=== PATIENT | male | born 1960 | race Hispanic/Latino ===

== ENCOUNTER → 2023-03-18 | Outpatient (CLI) | payer MEDICAID ==
[2023-03-25 12:20] LABS: CREATININE 1.1 mg/dL (0.5-1.5); POTASSIUM 4.7 mmol/L (3.5-5.1)
== END | disposition home or self-care (01) ==
LOC: LAB 10:33
PROVIDERS: ATTEND Physician Assistant
DX: R06.00 Dyspnea, unspecified (principal); I25.810 Atherosclerosis of coronary artery bypass graft(s) without angina pectoris
CPT/HCPCS: 36415; 80048; 83880

== ENCOUNTER 2023-03-29 19:22 | Inpatient (IN) | payer MEDICAID ==
[~2023-03-29] VITALS: Ht 162.6 cm; Wt 99.7 kg
[2023-03-29 20:15] LABS: BASOPHILS # (AUTO) 0.04 K/uL (0.00-0.20); BASOPHILS % (AUTO) 0.5 % (0.0-5.0); EOSINOPHILS # (AUTO) 0.11 K/uL (0.00-0.70); EOSINOPHILS % (AUTO) 1.4 % (0.0-8.0); HEMATOCRIT 46.8 % (42-54); IMMATURE GRANULOCYTE ABSOLUTE 0.03 K/uL (0-1); LYMPHOCYTES # (AUTO) 1.8 K/uL (1.0-4.8); LYMPHOCYTES % (AUTO) 22.5 % (21.0-51.0); MEAN CORPUSCULAR HEMOGLOBIN 30.5 pg (27.0-33.0); MEAN CORPUSCULAR HGB CONC 33.3 g/dL (32.0-36.0); MEAN CORPUSCULAR VOLUME 91.4 fL (79-99); MONOCYTES # (AUTO) 0.7 K/uL (0.1-1.0); MONOCYTES % (AUTO) 8.6 % (3.0-13.0); NEUTROPHILS # (AUTO) 5.3 K/uL (1.8-7.7); NEUTROPHILS % (AUTO) 66.6 % (40.0-77.0); PLATELET COUNT (AUTO) 206 K/uL (130-400); RED BLOOD CELL COUNT(AUTO) 5.12 MIL/uL (4.50-6.20); RED CELL DISTRIBUTION WIDTH 15.1 % (11.0-15.5); WHITE BLOOD COUNT (AUTO) 7.9 K/uL (4.8-10.8)
[2023-03-29 20:25] LABS: INR 1.29 (0.85-1.15); PROTHROMBIN TIME 14.7 SEC (9.6-11.6)
[2023-03-29 20:27] LABS: PARTIAL THROMBOPLASTIN TIME 28.5 SEC (26.3-35.5)
[2023-03-29 20:33] LABS: CREATININE 1.1 mg/dL (0.5-1.5); POTASSIUM 3.8 mmol/L (3.5-5.1)
[2023-03-29 20:43] LABS: ALBUMIN 3.5 g/dL (3.5-5.0); BILIRUBIN,TOTAL 1.8 mg/dL (0.2-1.0); TOTAL PROTEIN, SERUM 6.7 g/dL (6.0-8.3)
[2023-03-29] MEDS ORDERED: GLUCAGON 1MG KIT 1 MG ML IM PRN (22:30)
[2023-03-29] MEDS ORDERED: ONDANSETRON 4MG INJ IVP PRN (22:30)
[2023-03-29] MEDS ORDERED: DEXTROSE 50%-WATER 50 ML DISP.SYRIN IV PRN (22:30)
[2023-03-29] MEDS ORDERED: ACETAMINOPHEN 325 MG TAB PO PRN ×2 (22:30)
[2023-03-29 23:30] VITALS: O2SAT 98
[2023-03-29 23:32] VITALS: BP 133/80; PULSE 100; RESP 18
[2023-03-30] VITALS (13 sets, daily range): BP systolic 119–162; BP diastolic 66–110; PULSE 40–119; RESP 18–22; O2SAT 96–97
[2023-03-30 02:40] LABS: HEMATOCRIT 47.1 % (42-54); MEAN CORPUSCULAR HEMOGLOBIN 30.9 pg (27.0-33.0); MEAN CORPUSCULAR HGB CONC 32.9 g/dL (32.0-36.0); MEAN CORPUSCULAR VOLUME 93.8 fL (79-99); RED BLOOD CELL COUNT(AUTO) 5.02 MIL/uL (4.50-6.20); RED CELL DISTRIBUTION WIDTH 15.4 % (11.0-15.5)
[2023-03-30 03:06] LABS: HEMOGLOBIN A1C 8.3 % (4.0-6.0)
[2023-03-30 03:09] LABS: CREATININE 1.1 mg/dL (0.5-1.5); MAGNESIUM 1.8 mg/dL (1.80-2.40); POTASSIUM 4.4 mmol/L (3.5-5.1)
[2023-03-30] MEDS ORDERED: APIX5TAB PO (04:59)
[2023-03-30] MEDS ORDERED: HYDR-3421 PO (04:59)
[2023-03-30] MEDS ORDERED: METO-391 PO (04:59)
[2023-03-30] MEDS ORDERED: ATOR40TA71 PO (04:59)
[2023-03-30] MEDS ORDERED: FURO40TA5 PO (04:59)
[2023-03-30] MEDS ORDERED: NITR0.4T50 SL (04:59)
[2023-03-30] MEDS ORDERED: DIPHENHYDRAMINE HCL 25 MG CAPSULE PO ONE (05:45)
[2023-03-30] MEDS: INSULIN HUMULIN R 100 UNIT/ML 3ML SQ SCH ×4 (06:04→20:31)
[2023-03-30] MEDS ORDERED: 0.9% NACL 500ML IV.SOLN 500 ML IV SCH (09:00)
[2023-03-30] MEDS ORDERED: MIDAZOLAM HCL 1 MG/ML 2ML VIAL ONE ×2 (13:27→13:58)
[2023-03-30] MEDS ORDERED: BIVALIRUDIN 250 MG/VIAL IV ONE (13:27)
[2023-03-30] MEDS ORDERED: NITROGLYCERIN 50MG VIAL ONE (13:27)
[2023-03-30] MEDS ORDERED: LIDOCAINE HCL 400MG/20ML VIAL ONE (13:27)
[2023-03-30] MEDS ORDERED: FENTANYL CITRATE PF 50 MCG/1 ML 2ML VIAL ONE (13:27)
[2023-03-30] MEDS ORDERED: IOHEXOL 350 MG/ML 100ML INFUS..BTL IV ONE (13:27)
[2023-03-30] MEDS ORDERED: IOHEXOL-350 50ML VIAL IV ONE (13:27)
[2023-03-30] MEDS ORDERED: IOHEXOL-350 75 ML VIAL IV ONE (14:28)
[2023-03-30] MEDS ORDERED: HYDRALAZINE 20MG/ML VIAL IV PRN (15:00)
[2023-03-30] MEDS ORDERED: METOPROLOL TARTRATE 1 MG/ML 5ML VIAL IV ONE (20:14)
[2023-03-30] MEDS ORDERED: ATORVASTATIN 40 MG TABLET ONE (20:14)
[2023-03-30] MEDS ORDERED: METOPROLOL SUCCINATE 50 MG TAB.SR.24H PO ONE (20:14)
[2023-03-30] MEDS ORDERED: METOPROLOL TARTRATE 50 MG TAB PO ONE (21:30)
[2023-03-30] MEDS ORDERED: ATORVASTATIN 40 MG TABLET PO ONE (21:30)
[2023-03-31] VITALS (15 sets, daily range): BP systolic 102–144; BP diastolic 54–116; PULSE 58–99; RESP 16–22; O2SAT 94–98
[2023-03-31] MEDS ORDERED: NITROGLYCERIN 0.4 MG SL TAB SL PRN (01:30)
[2023-03-31] MEDS ORDERED: HYDROXYZINE 25 MG TABLET PO PRN (01:30)
[2023-03-31] MEDS: INSULIN HUMULIN R 100 UNIT/ML 3ML SQ SCH ×3 (05:39→21:02)
[2023-03-31] MEDS ORDERED: VANCOMYCIN KIT 1 GM/250 ML IV.KIT IV ONE (08:30)
[2023-03-31] MEDS ORDERED: APIXABAN 5 MG TABLET PO SCH (09:00)
[2023-03-31] MEDS ORDERED: FUROSEMIDE 40 MG TABLET PO SCH (09:00)
[2023-03-31] MEDS: METOPROLOL SUCCINATE 50 MG TAB.SR.24H PO SCH ×2 (09:07→20:56)
[2023-03-31] MEDS ORDERED: FUROSEMIDE 20MG VIAL IV ONE (09:30)
[2023-03-31 10:14] LABS: BASOPHILS # (AUTO) 0.05 K/uL (0.00-0.20); BASOPHILS % (AUTO) 0.7 % (0.0-5.0); EOSINOPHILS # (AUTO) 0.06 K/uL (0.00-0.70); EOSINOPHILS % (AUTO) 0.8 % (0.0-8.0); HEMATOCRIT 48.4 % (42-54); IMMATURE GRANULOCYTE ABSOLUTE 0.02 K/uL (0-1); LYMPHOCYTES # (AUTO) 1.6 K/uL (1.0-4.8); LYMPHOCYTES % (AUTO) 21.8 % (21.0-51.0); MEAN CORPUSCULAR HEMOGLOBIN 30.8 pg (27.0-33.0); MEAN CORPUSCULAR HGB CONC 33.1 g/dL (32.0-36.0); MEAN CORPUSCULAR VOLUME 93.3 fL (79-99); MONOCYTES # (AUTO) 0.6 K/uL (0.1-1.0); MONOCYTES % (AUTO) 8.7 % (3.0-13.0); NEUTROPHILS # (AUTO) 4.9 K/uL (1.8-7.7); NEUTROPHILS % (AUTO) 67.7 % (40.0-77.0); PLATELET COUNT (AUTO) 195 K/uL (130-400); RED BLOOD CELL COUNT(AUTO) 5.19 MIL/uL (4.50-6.20); RED CELL DISTRIBUTION WIDTH 15.4 % (11.0-15.5); WHITE BLOOD COUNT (AUTO) 7.3 K/uL (4.8-10.8)
[2023-03-31 10:25] LABS: ALBUMIN 3.4 g/dL (3.5-5.0); BILIRUBIN,TOTAL 2.6 mg/dL (0.2-1.0); CREATININE 1.4 mg/dL (0.5-1.5); POTASSIUM 4.3 mmol/L (3.5-5.1); TOTAL PROTEIN, SERUM 6.7 g/dL (6.0-8.3)
[2023-03-31 10:33] LABS: INR 1.39 (0.85-1.15); PROTHROMBIN TIME 15.8 SEC (9.6-11.6)
[2023-03-31 10:35] LABS: PARTIAL THROMBOPLASTIN TIME 29.1 SEC (26.3-35.5)
[2023-03-31] MEDS ORDERED: LIDOCAINE HCL 1% MDV 50ML VIAL ONE (13:16)
[2023-03-31] MEDS ORDERED: BUPIVACAINE/PF 0.25% 30ML VIAL IJ ONE (13:16)
[2023-03-31] MEDS ORDERED: IOHEXOL-350 50ML VIAL IV ONE (13:16)
[2023-03-31] MEDS ORDERED: VANCOMYCIN 1G/250ML KIT 500 ML IV ONE (13:17)
[2023-03-31] MEDS ORDERED: FENTANYL CITRATE PF 50 MCG/1 ML 2ML VIAL ONE (13:48)
[2023-03-31] MEDS ORDERED: ETOMIDATE 20MG VIAL ONE (13:48)
[2023-03-31] MEDS ORDERED: PROPOFOL 1000 MG/100 ML 100 ML IV ONE (13:48)
[2023-03-31] MEDS ORDERED: MIDAZOLAM HCL 1 MG/ML 5ML VIAL ONE (13:48)
[2023-03-31] MEDS ORDERED: LIDOCAINE PF 100MG/5ML (2%) SYRINGE 5ML ONE (13:48)
[2023-03-31] MEDS ORDERED: SUCCINYLCHOLINE CHLORIDE 20 MG/ML 10 ML VIAL ONE (13:48)
[2023-03-31] MEDS ORDERED: KETAMINE 50MG/ML SYRINGE 50 MG/ML DISP.SYRIN ONE (13:49)
[2023-03-31] MEDS ORDERED: ACETAMINOPHEN WITH CODEINE 1 TAB TAB PO PRN (15:30)
[2023-03-31] MEDS ORDERED: ACETAMINOPHEN 500 MG TABLET PO PRN (15:30)
[2023-03-31] MEDS: LISINOPRIL 2.5 MG TABLET PO SCH (21:00)
[2023-03-31] MEDS ORDERED: ATORVASTATIN 40 MG TABLET PO SCH (21:00)
[2023-04-01 00:08] VITALS: BP 132/65; PULSE 70; RESP 20
[2023-04-01 04:07] VITALS: BP 128/84; PULSE 76; RESP 18
[2023-04-01] MEDS: INSULIN HUMULIN R 100 UNIT/ML 3ML SQ SCH ×2 (06:50→11:30)
[2023-04-01 07:20] VITALS: BP 120/90; PULSE 94; RESP 18
[2023-04-01 08:00] VITALS: O2SAT 96
[2023-04-01] MEDS: LISINOPRIL 2.5 MG TABLET PO SCH (09:00)
[2023-04-01] MEDS ORDERED: FUROSEMIDE 40MG VIAL IV SCH (09:00)
[2023-04-01] MEDS: METOPROLOL SUCCINATE 50 MG TAB.SR.24H PO SCH (09:30)
[2023-04-01] MEDS ORDERED: TRAM50TA4 PO (09:51)
[2023-04-01 11:10] VITALS: BP 128/81; PULSE 81; RESP 18
[2023-04-01] MEDS ORDERED: FUROSEMIDE 40 MG TABLET PO SCH (17:00)
[2023-04-02] MEDS ORDERED: LISINOPRIL 2.5 MG TABLET PO SCH (09:00)
== END 2023-04-01 14:15 | disposition home or self-care (01) | DRG 192 ==
LOC: EDH 19:22 → EDHIP 19:23 → 2DH 22:55
PROVIDERS: ADMIT Internal Medicine Infectious Disease; ATTEND Internal Medicine Infectious Disease
PROC: 4A023N7 Measurement of Cardiac Sampling and Pressure, Left Heart, Percutaneous Approach (ICD-10-PCS; principal; 2023-03-30)
PROC: B2111ZZ Fluoroscopy of Multiple Coronary Arteries using Low Osmolar Contrast (ICD-10-PCS; 2023-03-30)
PROC: B2151ZZ Fluoroscopy of Left Heart using Low Osmolar Contrast (ICD-10-PCS; 2023-03-30)
PROC: B3121ZZ Fluoroscopy of Left Subclavian Artery using Low Osmolar Contrast (ICD-10-PCS; 2023-03-30)
PROC: B2181ZZ Fluoroscopy of Left Internal Mammary Bypass Graft using Low Osmolar Contrast (ICD-10-PCS; 2023-03-30)
DX: I47.20 Ventricular tachycardia, unspecified (principal); I50.43 Acute on chronic combined systolic (congestive) and diastolic (congestive) heart failure; I11.0 Hypertensive heart disease with heart failure; E11.9 Type 2 diabetes mellitus without complications; I25.10 Atherosclerotic heart disease of native coronary artery without angina pectoris; I25.5 Ischemic cardiomyopathy; E66.01 Morbid (severe) obesity due to excess calories; E78.00 Pure hypercholesterolemia, unspecified; F41.9 Anxiety disorder, unspecified; Z79.01 Long term (current) use of anticoagulants; Z83.3 Family history of diabetes mellitus; Z82.49 Family history of ischemic heart disease and other diseases of the circulatory system; Z91.199 Patient's noncompliance with other medical treatment and regimen due to unspecified reason; Z95.1 Presence of aortocoronary bypass graft; Z95.5 Presence of coronary angioplasty implant and graft; Z95.810 Presence of automatic (implantable) cardiac defibrillator; Z79.84 Long term (current) use of oral hypoglycemic drugs; Z68.37 Body mass index [BMI] 37.0-37.9, adult
CPT/HCPCS: 33249; 36415; 71045; 80048; 80053; 82948; 83036; 83735; 83880; 84484; 85025; 85027; 85610; 85730; 93005; 93459; 93970; 99156; 99157; C1722; C1769; C1894; C1895; G0378; J0330; J0583; J1644; J1815; J1940; J2001; J2250; J2704; J3010; J3370; J3490; Q0163; Q9967; J0665; Q9965

== ENCOUNTER → 2023-05-02 | Outpatient (CLI) | payer MEDICAID ==
[~2023-05-02] MED LIST: AEC81 PO; APIX5TAB PO; ATOR40TA71 PO; FURO40TA7 PO; HYDR-3421 PO; METO-391 PO; METO2.5T2 PO; NITR0.4T50 SL
[2023-05-02 16:32] LABS: BASOPHILS # (AUTO) 0.03 K/uL (0.00-0.20); BASOPHILS % (AUTO) 0.3 % (0.0-5.0); EOSINOPHILS # (AUTO) 0.02 K/uL (0.00-0.70); EOSINOPHILS % (AUTO) 0.2 % (0.0-8.0); HEMATOCRIT 51.9 % (42-54); IMMATURE GRANULOCYTE ABSOLUTE 0.03 K/uL (0-1); LYMPHOCYTES # (AUTO) 1.3 K/uL (1.0-4.8); MEAN CORPUSCULAR HEMOGLOBIN 30.7 pg (27.0-33.0); MEAN CORPUSCULAR HGB CONC 32.8 g/dL (32.0-36.0); MEAN CORPUSCULAR VOLUME 93.9 fL (79-99); MONOCYTES % (AUTO) 8.7 % (3.0-13.0); NEUTROPHILS # (AUTO) 8.7 K/uL (1.8-7.7); NEUTROPHILS % (AUTO) 78.5 % (40.0-77.0); PLATELET COUNT (AUTO) 143 K/uL (130-400); RED BLOOD CELL COUNT(AUTO) 5.53 MIL/uL (4.50-6.20)
[2023-05-02 16:43] LABS: ALBUMIN 3.6 g/dL (3.5-5.0); POTASSIUM 3.7 mmol/L (3.5-5.1); TOTAL PROTEIN, SERUM 7.5 g/dL (6.0-8.3)
[2023-05-02 16:57] LABS: B-TYPE NATRIURETIC PEPTIDE 1390 pg/mL (0-100)
== END | disposition home or self-care (01) ==
LOC: LAB 08:28
PROVIDERS: ATTEND Physician Assistant
DX: I50.22 Chronic systolic (congestive) heart failure (principal); R06.00 Dyspnea, unspecified
CPT/HCPCS: 36415; 80053; 83880; 85025

== ENCOUNTER → 2023-05-06 | Outpatient (CLI) | payer MEDICAID ==
[2023-05-06 12:24] LABS: BASOPHILS # (AUTO) 0.03 K/uL (0.00-0.20); BASOPHILS % (AUTO) 0.4 % (0.0-5.0); EOSINOPHILS # (AUTO) 0.03 K/uL (0.00-0.70); EOSINOPHILS % (AUTO) 0.4 % (0.0-8.0); IMMATURE GRANULOCYTE ABSOLUTE 0.04 K/uL (0-1); LYMPHOCYTES # (AUTO) 1.3 K/uL (1.0-4.8); LYMPHOCYTES % (AUTO) 15.4 % (21.0-51.0); MEAN CORPUSCULAR HEMOGLOBIN 31.1 pg (27.0-33.0); MEAN CORPUSCULAR HGB CONC 33.6 g/dL (32.0-36.0); MEAN CORPUSCULAR VOLUME 92.6 fL (79-99); MONOCYTES # (AUTO) 0.7 K/uL (0.1-1.0); MONOCYTES % (AUTO) 7.9 % (3.0-13.0); NEUTROPHILS # (AUTO) 6.3 K/uL (1.8-7.7); NEUTROPHILS % (AUTO) 75.4 % (40.0-77.0); PLATELET COUNT (AUTO) 178 K/uL (130-400); RED BLOOD CELL COUNT(AUTO) 4.86 MIL/uL (4.50-6.20); RED CELL DISTRIBUTION WIDTH 15.4 % (11.0-15.5); WHITE BLOOD COUNT (AUTO) 8.3 K/uL (4.8-10.8)
[2023-05-06 12:45] LABS: ALBUMIN 3.1 g/dL (3.5-5.0); MAGNESIUM 1.6 mg/dL (1.80-2.40); POTASSIUM 3.8 mmol/L (3.5-5.1); TOTAL PROTEIN, SERUM 7.6 g/dL (6.0-8.3)
[2023-05-06 13:45] LABS: B-TYPE NATRIURETIC PEPTIDE 984 pg/mL (0-100)
== END | disposition home or self-care (01) ==
LOC: LAB 10:15
PROVIDERS: ATTEND Physician Assistant
DX: I25.10 Atherosclerotic heart disease of native coronary artery without angina pectoris (principal); I10 Essential (primary) hypertension; I25.5 Ischemic cardiomyopathy; I48.20 Chronic atrial fibrillation, unspecified; E11.9 Type 2 diabetes mellitus without complications; E78.5 Hyperlipidemia, unspecified
CPT/HCPCS: 36415; 80053; 83735; 83880; 85025

== ENCOUNTER 2023-05-15 12:48 | Emergency (ER) | payer MEDICAID ==
[~2023-05-15] VITALS: Ht 167.6 cm; Wt 93.9 kg
[2023-05-15 14:03] VITALS: O2SAT 99
[2023-05-15 14:08] LABS: BASOPHILS # (AUTO) 0.05 K/uL (0.00-0.20); BASOPHILS % (AUTO) 0.5 % (0.0-5.0); EOSINOPHILS # (AUTO) 0.02 K/uL (0.00-0.70); EOSINOPHILS % (AUTO) 0.2 % (0.0-8.0); HEMATOCRIT 45.2 % (42-54); IMMATURE GRANULOCYTE ABSOLUTE 0.07 K/uL (0-1); LYMPHOCYTES # (AUTO) 1.3 K/uL (1.0-4.8); LYMPHOCYTES % (AUTO) 12.4 % (21.0-51.0); MEAN CORPUSCULAR HGB CONC 34.7 g/dL (32.0-36.0); MEAN CORPUSCULAR VOLUME 89.3 fL (79-99); MONOCYTES # (AUTO) 0.7 K/uL (0.1-1.0); MONOCYTES % (AUTO) 6.1 % (3.0-13.0); NEUTROPHILS # (AUTO) 8.6 K/uL (1.8-7.7); NEUTROPHILS % (AUTO) 80.1 % (40.0-77.0); PLATELET COUNT (AUTO) 304 K/uL (130-400); RED BLOOD CELL COUNT(AUTO) 5.06 MIL/uL (4.50-6.20); WHITE BLOOD COUNT (AUTO) 10.7 K/uL (4.8-10.8)
[2023-05-15 15:04] LABS: CREATININE 1.2 mg/dL (0.5-1.5); MAGNESIUM 1.8 mg/dL (1.80-2.40); THYROID STIMULATING HORMONE 2.9 uIU/mL (0.36-3.74)
[2023-05-15 16:13] VITALS: BP 105/84; PULSE 90; RESP 18
== END 2023-05-15 16:26 | disposition home or self-care (01) ==
LOC: EDH 12:48
DX: I11.0 Hypertensive heart disease with heart failure (principal); I50.9 Heart failure, unspecified; R60.0 Localized edema; I49.3 Ventricular premature depolarization; E87.1 Hypo-osmolality and hyponatremia; E11.9 Type 2 diabetes mellitus without complications; E78.00 Pure hypercholesterolemia, unspecified; Z79.01 Long term (current) use of anticoagulants; Z79.82 Long term (current) use of aspirin; Z79.899 Other long term (current) drug therapy; Z95.1 Presence of aortocoronary bypass graft; Z95.5 Presence of coronary angioplasty implant and graft; Z95.810 Presence of automatic (implantable) cardiac defibrillator
CPT/HCPCS: 36415; 80048; 83735; 84443; 85025; 87070; 87076; 87077; 87186; 93005

== ENCOUNTER 2023-05-30 10:30 | Emergency (ER) | payer MEDICAID ==
[~2023-05-30] VITALS: Ht 162.6 cm; Wt 93.4 kg
[2023-05-30 10:35] VITALS: BP 117/73; PULSE 106; RESP 16; O2SAT 99
[2023-05-30 12:02] LABS: BASOPHILS # (AUTO) 0.06 K/uL (0.00-0.20); BASOPHILS % (AUTO) 0.7 % (0.0-5.0); EOSINOPHILS # (AUTO) 0.07 K/uL (0.00-0.70); EOSINOPHILS % (AUTO) 0.8 % (0.0-8.0); HEMATOCRIT 47.3 % (42-54); IMMATURE GRANULOCYTE ABSOLUTE 0.03 K/uL (0-1); LYMPHOCYTES # (AUTO) 1.3 K/uL (1.0-4.8); LYMPHOCYTES % (AUTO) 15.3 % (21.0-51.0); MEAN CORPUSCULAR HEMOGLOBIN 31.1 pg (27.0-33.0); MEAN CORPUSCULAR HGB CONC 33.6 g/dL (32.0-36.0); MEAN CORPUSCULAR VOLUME 92.4 fL (79-99); MONOCYTES # (AUTO) 0.5 K/uL (0.1-1.0); MONOCYTES % (AUTO) 6.4 % (3.0-13.0); NEUTROPHILS # (AUTO) 6.4 K/uL (1.8-7.7); NEUTROPHILS % (AUTO) 76.4 % (40.0-77.0); PLATELET COUNT (AUTO) 179 K/uL (130-400); RED BLOOD CELL COUNT(AUTO) 5.12 MIL/uL (4.50-6.20); RED CELL DISTRIBUTION WIDTH 17.1 % (11.0-15.5); WHITE BLOOD COUNT (AUTO) 8.3 K/uL (4.8-10.8)
[2023-05-30 12:26] LABS: POTASSIUM 3.9 mmol/L (3.5-5.1)
[2023-05-30 12:31] LABS: ALBUMIN 3.4 g/dL (3.5-5.0); BILIRUBIN,TOTAL 2.1 mg/dL (0.2-1.0); TOTAL PROTEIN, SERUM 7.3 g/dL (6.0-8.3)
== END 2023-05-30 14:33 | disposition left against medical advice (07) ==
LOC: EDH 10:30
DX: R60.0 Localized edema (principal); Z53.21 Procedure and treatment not carried out due to patient leaving prior to being seen by health care provider
CPT/HCPCS: 36415; 80053; 83605; 83735; 83880; 85025; 87040; 99281

== ENCOUNTER 2023-06-09 06:25 | Emergency (ER) | payer MEDICAID ==
[~2023-06-09] VITALS: Ht 162.6 cm; Wt 94.3 kg
[~2023-06-09 06:25] MED LIST changes: +ATOR40TA69 PO; +FURO20TA4 PO; +FURO40TA5 PO; +GABA-529 PO
[2023-06-09 07:52] LABS: BASOPHILS # (AUTO) 0.04 K/uL (0.00-0.20); BASOPHILS % (AUTO) 0.7 % (0.0-5.0); EOSINOPHILS # (AUTO) 0.07 K/uL (0.00-0.70); EOSINOPHILS % (AUTO) 1.3 % (0.0-8.0); HEMATOCRIT 43.2 % (42-54); IMMATURE GRANULOCYTE ABSOLUTE 0.04 K/uL (0-1); LYMPHOCYTES # (AUTO) 0.7 K/uL (1.0-4.8); LYMPHOCYTES % (AUTO) 12.9 % (21.0-51.0); MEAN CORPUSCULAR HEMOGLOBIN 32.1 pg (27.0-33.0); MEAN CORPUSCULAR HGB CONC 33.8 g/dL (32.0-36.0); MEAN CORPUSCULAR VOLUME 94.9 fL (79-99); MONOCYTES # (AUTO) 0.6 K/uL (0.1-1.0); MONOCYTES % (AUTO) 11.3 % (3.0-13.0); NEUTROPHILS % (AUTO) 73.1 % (40.0-77.0); NUCLEATED RED BLOOD CELLS 0.4 % (0.0-0.19); PLATELET COUNT (AUTO) 149 K/uL (130-400); RED BLOOD CELL COUNT(AUTO) 4.55 MIL/uL (4.50-6.20); RED CELL DISTRIBUTION WIDTH 16.9 % (11.0-15.5); WHITE BLOOD COUNT (AUTO) 5.4 K/uL (4.8-10.8)
[2023-06-09 08:17] LABS: ALBUMIN 2.6 g/dL (3.5-5.0); BILIRUBIN,TOTAL 1.4 mg/dL (0.2-1.0); CREATININE 1.2 mg/dL (0.5-1.5); MAGNESIUM 1.7 mg/dL (1.80-2.40); POTASSIUM 4.4 mmol/L (3.5-5.1); TOTAL PROTEIN, SERUM 6.4 g/dL (6.0-8.3)
[2023-06-09] MEDS ORDERED: FUROSEMIDE 40MG VIAL IV ONE (08:30)
[2023-06-09] MEDS ORDERED: MORPHINE 4 MG SYG IM ONE (10:00)
[2023-06-09 10:15] VITALS: BP 118/70; PULSE 86; RESP 22; O2SAT 94
[2023-06-09] MEDS ORDERED: CEPH500B PO (15:24)
[2023-06-09] MEDS ORDERED: CEPHALEXIN 500 MG CAPSULE PO ONE (15:30)
== END 2023-06-09 16:11 | disposition home or self-care (01) ==
LOC: EDH 06:25
DX: L97.929 Non-pressure chronic ulcer of unspecified part of left lower leg with unspecified severity (principal); L97.919 Non-pressure chronic ulcer of unspecified part of right lower leg with unspecified severity; R60.0 Localized edema; I73.9 Peripheral vascular disease, unspecified; I13.0 Hypertensive heart and chronic kidney disease with heart failure and stage 1 through stage 4 chronic kidney disease, or unspecified chronic kidney disease; E11.22 Type 2 diabetes mellitus with diabetic chronic kidney disease; N18.9 Chronic kidney disease, unspecified; I50.9 Heart failure, unspecified; I48.91 Unspecified atrial fibrillation; Z79.01 Long term (current) use of anticoagulants; Z79.82 Long term (current) use of aspirin; Z79.899 Other long term (current) drug therapy; Z95.5 Presence of coronary angioplasty implant and graft; Z95.810 Presence of automatic (implantable) cardiac defibrillator
CPT/HCPCS: 99284; 96374; 71045; 83735; 80053; 83880; 85025; 36415; 96372; A6248; A6253; J2270; J1940

== ENCOUNTER → 2023-06-13 | Outpatient (CLI) | payer MEDICAID ==
[~2023-06-13] MED LIST changes: +CEPH500B PO; +CEPH500C2 PO; +LIDOCAINE HCL 4% LTA SOL 4 ML VIAL TP ONE
== END | disposition home or self-care (01) ==
LOC: WHH 11:08
PROVIDERS: ATTEND Nurse Practitioner Family
DX: I70.248 Atherosclerosis of native arteries of left leg with ulceration of other part of lower leg (principal); E11.622 Type 2 diabetes mellitus with other skin ulcer; L97.822 Non-pressure chronic ulcer of other part of left lower leg with fat layer exposed; I70.232 Atherosclerosis of native arteries of right leg with ulceration of calf; L97.212 Non-pressure chronic ulcer of right calf with fat layer exposed; I70.233 Atherosclerosis of native arteries of right leg with ulceration of ankle; L97.312 Non-pressure chronic ulcer of right ankle with fat layer exposed; I70.238 Atherosclerosis of native arteries of right leg with ulceration of other part of lower leg; L97.811 Non-pressure chronic ulcer of other part of right lower leg limited to breakdown of skin; I70.242 Atherosclerosis of native arteries of left leg with ulceration of calf; L97.222 Non-pressure chronic ulcer of left calf with fat layer exposed; E11.51 Type 2 diabetes mellitus with diabetic peripheral angiopathy without gangrene; E11.22 Type 2 diabetes mellitus with diabetic chronic kidney disease; I13.0 Hypertensive heart and chronic kidney disease with heart failure and stage 1 through stage 4 chronic kidney disease, or unspecified chronic kidney disease; I50.23 Acute on chronic systolic (congestive) heart failure; I25.10 Atherosclerotic heart disease of native coronary artery without angina pectoris; E78.00 Pure hypercholesterolemia, unspecified; J44.9 Chronic obstructive pulmonary disease, unspecified; I48.20 Chronic atrial fibrillation, unspecified; E87.1 Hypo-osmolality and hyponatremia; F41.9 Anxiety disorder, unspecified; I25.2 Old myocardial infarction; E66.9 Obesity, unspecified; Z68.33 Body mass index [BMI] 33.0-33.9, adult; Z95.810 Presence of automatic (implantable) cardiac defibrillator; Z86.73 Personal history of transient ischemic attack (TIA), and cerebral infarction without residual deficits; Z95.1 Presence of aortocoronary bypass graft; Z79.01 Long term (current) use of anticoagulants; Z79.82 Long term (current) use of aspirin; Z79.899 Other long term (current) drug therapy
CPT/HCPCS: 11042; 11045; A6253; A6197; A4450

== ENCOUNTER → 2023-06-30 | Outpatient (CLI) | payer MEDICAID ==
[~2023-06-30] VITALS: Ht 162.6 cm; Wt 91.2 kg
[~2023-06-30] MED LIST changes: +ACET-66 PO; -ATOR40TA69 PO; +CEFU500T67 PO; -CEPH500B PO; -CEPH500C2 PO; +DOXY100C5 PO; -FURO20TA4 PO; -LIDOCAINE HCL 4% LTA SOL 4 ML VIAL TP ONE
[2023-06-30 10:25] LABS: BASOPHILS # (AUTO) 0.07 K/uL (0.00-0.20); BASOPHILS % (AUTO) 0.9 % (0.0-5.0); EOSINOPHILS # (AUTO) 0.03 K/uL (0.00-0.70); EOSINOPHILS % (AUTO) 0.4 % (0.0-8.0); HEMATOCRIT 47.9 % (42-54); IMMATURE GRANULOCYTE ABSOLUTE 0.04 K/uL (0-1); LYMPHOCYTES # (AUTO) 1.7 K/uL (1.0-4.8); LYMPHOCYTES % (AUTO) 20.8 % (21.0-51.0); MEAN CORPUSCULAR HEMOGLOBIN 32.4 pg (27.0-33.0); MEAN CORPUSCULAR HGB CONC 33.4 g/dL (32.0-36.0); MONOCYTES # (AUTO) 0.7 K/uL (0.1-1.0); MONOCYTES % (AUTO) 8.2 % (3.0-13.0); NEUTROPHILS # (AUTO) 5.5 K/uL (1.8-7.7); NEUTROPHILS % (AUTO) 69.2 % (40.0-77.0); PLATELET COUNT (AUTO) 206 K/uL (130-400); RED BLOOD CELL COUNT(AUTO) 4.94 MIL/uL (4.50-6.20); RED CELL DISTRIBUTION WIDTH 18.2 % (11.0-15.5)
[2023-06-30 10:32] LABS: CREATININE 1.5 mg/dL (0.5-1.5); POTASSIUM 4.2 mmol/L (3.5-5.1)
[2023-06-30 10:33] VITALS: BP 107/91; PULSE 62; RESP 17
[2023-06-30 10:35] LABS: INR 1.35 (0.85-1.15); PROTHROMBIN TIME 15.4 SEC (9.6-11.6)
[2023-06-30 10:37] LABS: PARTIAL THROMBOPLASTIN TIME 29.9 SEC (26.3-35.5)
== END | disposition home or self-care (01) ==
LOC: DAH 10:00 → EDSTATUS 07-04 09:00
PROVIDERS: ATTEND Internal Medicine Cardiovascular Disease
DX: I49.3 Ventricular premature depolarization (principal); I25.5 Ischemic cardiomyopathy; I48.91 Unspecified atrial fibrillation; I21.9 Acute myocardial infarction, unspecified
CPT/HCPCS: 36415; 80048; 85025; 85610; 85730; 93005

== ENCOUNTER 2023-07-01 14:49 | Emergency (ER) | payer MEDICAID ==
[~2023-07-01] VITALS: Ht 162.6 cm; Wt 89.4 kg
[~2023-07-01 14:49] MED LIST changes: -ACET-66 PO; -CEFU500T67 PO; -DOXY100C5 PO
[2023-07-01 16:52] LABS: BASOPHILS # (AUTO) 0.07 K/uL (0.00-0.20); BASOPHILS % (AUTO) 0.8 % (0.0-5.0); EOSINOPHILS # (AUTO) 0.04 K/uL (0.00-0.70); EOSINOPHILS % (AUTO) 0.5 % (0.0-8.0); HEMATOCRIT 44.6 % (42-54); IMMATURE GRANULOCYTE ABSOLUTE 0.04 K/uL (0-1); LYMPHOCYTES # (AUTO) 1.5 K/uL (1.0-4.8); LYMPHOCYTES % (AUTO) 18.2 % (21.0-51.0); MEAN CORPUSCULAR HEMOGLOBIN 32.1 pg (27.0-33.0); MEAN CORPUSCULAR HGB CONC 34.8 g/dL (32.0-36.0); MEAN CORPUSCULAR VOLUME 92.3 fL (79-99); MONOCYTES # (AUTO) 0.7 K/uL (0.1-1.0); MONOCYTES % (AUTO) 8.4 % (3.0-13.0); NEUTROPHILS # (AUTO) 6.1 K/uL (1.8-7.7); NEUTROPHILS % (AUTO) 71.6 % (40.0-77.0); PLATELET COUNT (AUTO) 225 K/uL (130-400); RED BLOOD CELL COUNT(AUTO) 4.83 MIL/uL (4.50-6.20); RED CELL DISTRIBUTION WIDTH 17.8 % (11.0-15.5); WHITE BLOOD COUNT (AUTO) 8.5 K/uL (4.8-10.8)
[2023-07-01] MEDS ORDERED: ONDANSETRON 4MG INJ IVP ONE (18:30)
[2023-07-01] MEDS ORDERED: MORPHINE 2 MG SYG IVP ONE (18:30)
[2023-07-01 18:52] LABS: CREATININE 1.6 mg/dL (0.5-1.5); POTASSIUM 4.1 mmol/L (3.5-5.1)
[2023-07-01 19:00] LABS: ALBUMIN 2.9 g/dL (3.5-5.0); BILIRUBIN,TOTAL 1.7 mg/dL (0.2-1.0); TOTAL PROTEIN, SERUM 6.9 g/dL (6.0-8.3)
[2023-07-01 20:24] VITALS: BP 108/86; PULSE 115; RESP 18; O2SAT 98
[2023-07-03] MEDS ORDERED: DOXY100C5 PO (04:13)
[2023-07-03] MEDS ORDERED: FURO40TA5 PO (04:13)
[2023-07-03] MEDS ORDERED: METO2.5T2 PO (04:13)
[2023-07-03] MEDS ORDERED: CEFU500T67 PO (04:13)
[2023-07-03] MEDS ORDERED: ACET-66 PO (04:20)
== END 2023-07-01 21:15 | disposition home or self-care (01) ==
LOC: EDH 14:49
DX: I11.0 Hypertensive heart disease with heart failure (principal); I50.9 Heart failure, unspecified; I73.9 Peripheral vascular disease, unspecified; I48.91 Unspecified atrial fibrillation; J44.9 Chronic obstructive pulmonary disease, unspecified; Z79.01 Long term (current) use of anticoagulants; Z79.82 Long term (current) use of aspirin; Z79.899 Other long term (current) drug therapy; Z95.1 Presence of aortocoronary bypass graft; Z95.5 Presence of coronary angioplasty implant and graft; Z95.810 Presence of automatic (implantable) cardiac defibrillator
CPT/HCPCS: 99284; 96374; 71045; 96375; 84484; 80053; 83880; 85025; 87040 ×2; 83605; 36415; 93005; J2270; J2405

== ENCOUNTER → 2023-07-11 | Outpatient (CLI) | payer MEDICAID ==
[~2023-07-11] MED LIST changes: +ACET-2806 PO; +ACET-66 PO; +ASPRIN PO; +ATOR40TA69 PO; +CEFU500T67 PO; +DOXY100C5 PO; -FURO40TA7 PO; -HYDR-3421 PO; +LIDOCAINE HCL 4% LTA SOL 4 ML VIAL TP ONE; +TORS20TA4 PO
== END | disposition home or self-care (01) ==
LOC: WHH 10:51
PROVIDERS: ATTEND Nurse Practitioner Family
DX: E11.622 Type 2 diabetes mellitus with other skin ulcer (principal); I70.248 Atherosclerosis of native arteries of left leg with ulceration of other part of lower leg; L97.822 Non-pressure chronic ulcer of other part of left lower leg with fat layer exposed; I70.232 Atherosclerosis of native arteries of right leg with ulceration of calf; L97.212 Non-pressure chronic ulcer of right calf with fat layer exposed; I70.242 Atherosclerosis of native arteries of left leg with ulceration of calf; L97.222 Non-pressure chronic ulcer of left calf with fat layer exposed; I70.233 Atherosclerosis of native arteries of right leg with ulceration of ankle; L97.312 Non-pressure chronic ulcer of right ankle with fat layer exposed; I70.238 Atherosclerosis of native arteries of right leg with ulceration of other part of lower leg; L97.811 Non-pressure chronic ulcer of other part of right lower leg limited to breakdown of skin; E11.621 Type 2 diabetes mellitus with foot ulcer; I70.235 Atherosclerosis of native arteries of right leg with ulceration of other part of foot; L97.512 Non-pressure chronic ulcer of other part of right foot with fat layer exposed; E11.51 Type 2 diabetes mellitus with diabetic peripheral angiopathy without gangrene; E11.22 Type 2 diabetes mellitus with diabetic chronic kidney disease; I13.0 Hypertensive heart and chronic kidney disease with heart failure and stage 1 through stage 4 chronic kidney disease, or unspecified chronic kidney disease; I50.23 Acute on chronic systolic (congestive) heart failure; I25.10 Atherosclerotic heart disease of native coronary artery without angina pectoris; E78.00 Pure hypercholesterolemia, unspecified; J44.9 Chronic obstructive pulmonary disease, unspecified; I48.20 Chronic atrial fibrillation, unspecified; E87.1 Hypo-osmolality and hyponatremia; F41.9 Anxiety disorder, unspecified; I25.2 Old myocardial infarction; E66.9 Obesity, unspecified; Z68.33 Body mass index [BMI] 33.0-33.9, adult; Z95.810 Presence of automatic (implantable) cardiac defibrillator; Z86.73 Personal history of transient ischemic attack (TIA), and cerebral infarction without residual deficits; Z95.1 Presence of aortocoronary bypass graft; Z79.01 Long term (current) use of anticoagulants; Z79.82 Long term (current) use of aspirin; Z79.899 Other long term (current) drug therapy
CPT/HCPCS: 11042; 11045; A6248; A6197; A4450; A6260

== ENCOUNTER → 2023-07-15 | Outpatient (CLI) | payer MEDICAID ==
[~2023-07-15] MED LIST changes: -ACET-2806 PO; -ASPRIN PO; -ATOR40TA69 PO; -LIDOCAINE HCL 4% LTA SOL 4 ML VIAL TP ONE; -TORS20TA4 PO
[2023-07-15 12:14] LABS: BASOPHILS # (AUTO) 0.07 K/uL (0.00-0.20); BASOPHILS % (AUTO) 0.9 % (0.0-5.0); EOSINOPHILS % (AUTO) 1.2 % (0.0-8.0); HEMATOCRIT 44.3 % (42-54); IMMATURE GRANULOCYTE ABSOLUTE 0.04 K/uL (0-1); LYMPHOCYTES # (AUTO) 1.1 K/uL (1.0-4.8); LYMPHOCYTES % (AUTO) 13.9 % (21.0-51.0); MEAN CORPUSCULAR HEMOGLOBIN 32.4 pg (27.0-33.0); MEAN CORPUSCULAR HGB CONC 32.7 g/dL (32.0-36.0); MEAN CORPUSCULAR VOLUME 99.1 fL (79-99); MONOCYTES # (AUTO) 0.9 K/uL (0.1-1.0); MONOCYTES % (AUTO) 10.7 % (3.0-13.0); NEUTROPHILS % (AUTO) 72.8 % (40.0-77.0); PLATELET COUNT (AUTO) 200 K/uL (130-400); RED BLOOD CELL COUNT(AUTO) 4.47 MIL/uL (4.50-6.20); RED CELL DISTRIBUTION WIDTH 18.3 % (11.0-15.5); WHITE BLOOD COUNT (AUTO) 8.2 K/uL (4.8-10.8)
[2023-07-15 12:36] LABS: ALBUMIN 2.9 g/dL (3.5-5.0); BILIRUBIN,TOTAL 1.1 mg/dL (0.2-1.0); CREATININE 1.3 mg/dL (0.5-1.5); MAGNESIUM 1.4 mg/dL (1.80-2.40); POTASSIUM 3.5 mmol/L (3.5-5.1); TOTAL PROTEIN, SERUM 6.8 g/dL (6.0-8.3)
== END | disposition home or self-care (01) ==
LOC: LAB 09:55
PROVIDERS: ATTEND Physician Assistant
DX: I25.10 Atherosclerotic heart disease of native coronary artery without angina pectoris (principal); I10 Essential (primary) hypertension
CPT/HCPCS: 36415; 80053; 83735; 83880; 85025

== ENCOUNTER → 2023-07-19 | Outpatient (CLI) | payer MEDICAID ==
[~2023-07-19] MED LIST changes: +ACET-2806 PO; +ASPRIN PO; +ATOR40TA69 PO; -ATOR40TA71 PO; -CEFU500T67 PO; -DOXY100C5 PO; -FURO40TA5 PO; +LIDOCAINE HCL 4% LTA SOL 4 ML VIAL TP ONE; -METO2.5T2 PO; +TORS20TA4 PO
== END | disposition home or self-care (01) ==
LOC: WHH 10:41
PROVIDERS: ATTEND Nurse Practitioner Family
DX: E11.622 Type 2 diabetes mellitus with other skin ulcer (principal); I70.248 Atherosclerosis of native arteries of left leg with ulceration of other part of lower leg; L97.822 Non-pressure chronic ulcer of other part of left lower leg with fat layer exposed; I70.232 Atherosclerosis of native arteries of right leg with ulceration of calf; L97.212 Non-pressure chronic ulcer of right calf with fat layer exposed; I70.242 Atherosclerosis of native arteries of left leg with ulceration of calf; L97.222 Non-pressure chronic ulcer of left calf with fat layer exposed; I70.233 Atherosclerosis of native arteries of right leg with ulceration of ankle; L97.312 Non-pressure chronic ulcer of right ankle with fat layer exposed; I70.238 Atherosclerosis of native arteries of right leg with ulceration of other part of lower leg; L97.811 Non-pressure chronic ulcer of other part of right lower leg limited to breakdown of skin; E11.621 Type 2 diabetes mellitus with foot ulcer; I70.235 Atherosclerosis of native arteries of right leg with ulceration of other part of foot; L97.512 Non-pressure chronic ulcer of other part of right foot with fat layer exposed; E11.51 Type 2 diabetes mellitus with diabetic peripheral angiopathy without gangrene; E11.22 Type 2 diabetes mellitus with diabetic chronic kidney disease; I13.0 Hypertensive heart and chronic kidney disease with heart failure and stage 1 through stage 4 chronic kidney disease, or unspecified chronic kidney disease; I50.23 Acute on chronic systolic (congestive) heart failure; I25.10 Atherosclerotic heart disease of native coronary artery without angina pectoris; E78.00 Pure hypercholesterolemia, unspecified; J44.9 Chronic obstructive pulmonary disease, unspecified; I48.20 Chronic atrial fibrillation, unspecified; E87.1 Hypo-osmolality and hyponatremia; F41.9 Anxiety disorder, unspecified; I25.2 Old myocardial infarction; E66.9 Obesity, unspecified; Z68.33 Body mass index [BMI] 33.0-33.9, adult; Z95.810 Presence of automatic (implantable) cardiac defibrillator; Z86.73 Personal history of transient ischemic attack (TIA), and cerebral infarction without residual deficits; Z95.1 Presence of aortocoronary bypass graft; Z79.01 Long term (current) use of anticoagulants; Z79.82 Long term (current) use of aspirin; Z79.899 Other long term (current) drug therapy
CPT/HCPCS: 11042; 11045; A6197; A6260

== ENCOUNTER → 2023-07-22 | Outpatient (CLI) | payer MEDICAID ==
[~2023-07-22] MED LIST changes: -LIDOCAINE HCL 4% LTA SOL 4 ML VIAL TP ONE
[2023-07-22 12:14] LABS: BASOPHILS # (AUTO) 0.04 K/uL (0.00-0.20); BASOPHILS % (AUTO) 0.6 % (0.0-5.0); EOSINOPHILS # (AUTO) 0.04 K/uL (0.00-0.70); EOSINOPHILS % (AUTO) 0.6 % (0.0-8.0); HEMATOCRIT 42.9 % (42-54); IMMATURE GRANULOCYTE ABSOLUTE 0.04 K/uL (0-1); LYMPHOCYTES # (AUTO) 1.2 K/uL (1.0-4.8); LYMPHOCYTES % (AUTO) 17.6 % (21.0-51.0); MEAN CORPUSCULAR HEMOGLOBIN 32.4 pg (27.0-33.0); MEAN CORPUSCULAR HGB CONC 33.8 g/dL (32.0-36.0); MONOCYTES # (AUTO) 0.7 K/uL (0.1-1.0); MONOCYTES % (AUTO) 9.6 % (3.0-13.0); PLATELET COUNT (AUTO) 225 K/uL (130-400); RED BLOOD CELL COUNT(AUTO) 4.47 MIL/uL (4.50-6.20); RED CELL DISTRIBUTION WIDTH 18.6 % (11.0-15.5); WHITE BLOOD COUNT (AUTO) 7.1 K/uL (4.8-10.8)
[2023-07-22 16:02] LABS: ALBUMIN 3.2 g/dL (3.5-5.0); BILIRUBIN,TOTAL 1.5 mg/dL (0.2-1.0); CREATININE 1.5 mg/dL (0.5-1.5); MAGNESIUM 1.7 mg/dL (1.80-2.40); POTASSIUM 3.3 mmol/L (3.5-5.1); TOTAL PROTEIN, SERUM 7.1 g/dL (6.0-8.3)
== END | disposition home or self-care (01) ==
LOC: LAB 09:43
PROVIDERS: ATTEND Physician Assistant
DX: I25.10 Atherosclerotic heart disease of native coronary artery without angina pectoris (principal); I10 Essential (primary) hypertension
CPT/HCPCS: 36415; 80053; 83735; 83880; 85025

== ENCOUNTER → 2023-07-26 | Outpatient (CLI) | payer MEDICAID ==
[~2023-07-26] MED LIST changes: +BUDE10.27 IH; +CYCL-309 PO; +LIDOCAINE HCL 4% LTA SOL 4 ML VIAL TP ONE; +MAGN400C PO; +METO2.5T2 PO; +POTA99TA26 PO; +VERI2.5T PO
== END | disposition home or self-care (01) ==
LOC: WHH 09:01
PROVIDERS: ATTEND Nurse Practitioner Family
DX: E11.622 Type 2 diabetes mellitus with other skin ulcer (principal); I70.248 Atherosclerosis of native arteries of left leg with ulceration of other part of lower leg; L97.822 Non-pressure chronic ulcer of other part of left lower leg with fat layer exposed; I70.232 Atherosclerosis of native arteries of right leg with ulceration of calf; L97.212 Non-pressure chronic ulcer of right calf with fat layer exposed; I70.242 Atherosclerosis of native arteries of left leg with ulceration of calf; L97.222 Non-pressure chronic ulcer of left calf with fat layer exposed; I70.233 Atherosclerosis of native arteries of right leg with ulceration of ankle; L97.312 Non-pressure chronic ulcer of right ankle with fat layer exposed; I70.238 Atherosclerosis of native arteries of right leg with ulceration of other part of lower leg; L97.811 Non-pressure chronic ulcer of other part of right lower leg limited to breakdown of skin; E11.621 Type 2 diabetes mellitus with foot ulcer; I70.235 Atherosclerosis of native arteries of right leg with ulceration of other part of foot; L97.512 Non-pressure chronic ulcer of other part of right foot with fat layer exposed; E11.51 Type 2 diabetes mellitus with diabetic peripheral angiopathy without gangrene; E11.22 Type 2 diabetes mellitus with diabetic chronic kidney disease; I13.0 Hypertensive heart and chronic kidney disease with heart failure and stage 1 through stage 4 chronic kidney disease, or unspecified chronic kidney disease; I50.23 Acute on chronic systolic (congestive) heart failure; I25.10 Atherosclerotic heart disease of native coronary artery without angina pectoris; E78.00 Pure hypercholesterolemia, unspecified; J44.9 Chronic obstructive pulmonary disease, unspecified; I48.20 Chronic atrial fibrillation, unspecified; E87.1 Hypo-osmolality and hyponatremia; F41.9 Anxiety disorder, unspecified; I25.2 Old myocardial infarction; E66.9 Obesity, unspecified; Z68.33 Body mass index [BMI] 33.0-33.9, adult; Z95.810 Presence of automatic (implantable) cardiac defibrillator; Z86.73 Personal history of transient ischemic attack (TIA), and cerebral infarction without residual deficits; Z95.1 Presence of aortocoronary bypass graft; Z79.01 Long term (current) use of anticoagulants; Z79.82 Long term (current) use of aspirin; Z79.899 Other long term (current) drug therapy
CPT/HCPCS: 11042; 11045; A6197

== ENCOUNTER 2023-08-12 13:24 | Emergency (ER) | payer MEDICAID ==
[~2023-08-12] VITALS: Ht 162.6 cm; Wt 95.3 kg
[~2023-08-12 13:24] MED LIST changes: -AEC81 PO; -ASPRIN PO; -LIDOCAINE HCL 4% LTA SOL 4 ML VIAL TP ONE
[2023-08-12 14:12] LABS: BASOPHILS # (AUTO) 0.03 K/uL (0.00-0.20); BASOPHILS % (AUTO) 0.4 % (0.0-5.0); EOSINOPHILS # (AUTO) 0.03 K/uL (0.00-0.70); EOSINOPHILS % (AUTO) 0.4 % (0.0-8.0); HEMATOCRIT 39.5 % (42-54); IMMATURE GRANULOCYTE ABSOLUTE 0.04 K/uL (0-1); LYMPHOCYTES # (AUTO) 0.8 K/uL (1.0-4.8); LYMPHOCYTES % (AUTO) 8.9 % (21.0-51.0); MEAN CORPUSCULAR HEMOGLOBIN 33.6 pg (27.0-33.0); MEAN CORPUSCULAR HGB CONC 34.4 g/dL (32.0-36.0); MEAN CORPUSCULAR VOLUME 97.5 fL (79-99); MONOCYTES # (AUTO) 0.8 K/uL (0.1-1.0); MONOCYTES % (AUTO) 9.3 % (3.0-13.0); NEUTROPHILS # (AUTO) 6.9 K/uL (1.8-7.7); NEUTROPHILS % (AUTO) 80.5 % (40.0-77.0); PLATELET COUNT (AUTO) 203 K/uL (130-400); RED BLOOD CELL COUNT(AUTO) 4.05 MIL/uL (4.50-6.20); RED CELL DISTRIBUTION WIDTH 16.8 % (11.0-15.5); WHITE BLOOD COUNT (AUTO) 8.5 K/uL (4.8-10.8)
[2023-08-12 14:25] LABS: INR 1.09 (0.85-1.15); PROTHROMBIN TIME 12.8 SEC (9.6-11.6)
[2023-08-12 14:26] LABS: PARTIAL THROMBOPLASTIN TIME 31.9 SEC (26.3-35.5)
[2023-08-12 14:29] LABS: ALBUMIN 2.8 g/dL (3.5-5.0); BILIRUBIN,TOTAL 2.1 mg/dL (0.2-1.0); MAGNESIUM 1.9 mg/dL (1.80-2.40); POTASSIUM 3.3 mmol/L (3.5-5.1); TOTAL PROTEIN, SERUM 7.2 g/dL (6.0-8.3)
[2023-08-12 14:33] LABS: B-TYPE NATRIURETIC PEPTIDE 1530 pg/mL (0-100)
[2023-08-12] MEDS: MORPHINE 4 MG SYG IM ONE (16:37)
[2023-08-12] MEDS: FUROSEMIDE 40MG VIAL IV ONE (16:38)
[2023-08-12] MEDS: LIDOCAINE 5% TOPICAL PATCH TP ONE (16:38)
[2023-08-12 18:56] VITALS: BP 124/82; PULSE 71; RESP 18; O2SAT 95
[2023-08-12] MEDS: ACETAMINOPHEN 500 MG TABLET PO ONE (19:35)
== END 2023-08-12 21:27 | disposition home or self-care (01) ==
LOC: EDH 13:24
DX: S29.012A Strain of muscle and tendon of back wall of thorax, initial encounter (principal); E11.22 Type 2 diabetes mellitus with diabetic chronic kidney disease; N18.9 Chronic kidney disease, unspecified; I50.9 Heart failure, unspecified; L97.829 Non-pressure chronic ulcer of other part of left lower leg with unspecified severity; L97.819 Non-pressure chronic ulcer of other part of right lower leg with unspecified severity; Z79.899 Other long term (current) drug therapy; Z98.890 Other specified postprocedural states; X58.XXXA Exposure to other specified factors, initial encounter; Y93.89 Activity, other specified; Y92.89 Other specified places as the place of occurrence of the external cause; Y99.8 Other external cause status
CPT/HCPCS: 99285; 96374; 71250; 71045; 83735; 84484; 80053; 83880; 85025; 85610; 85730; 36415; 93005; 96372; J2270; J1940

== ENCOUNTER 2023-08-16 09:55 | Emergency (ER) | payer MEDICAID ==
[~2023-08-16] VITALS: Ht 162.6 cm; Wt 93.4 kg
[~2023-08-16 09:55] MED LIST changes: -ALPR-409 PO; -ASPI-1005 PO; -LIDOCAINE HCL 4% LTA SOL 4 ML VIAL TP ONE
[2023-08-16 10:25] LABS: BASOPHILS # (AUTO) 0.03 K/uL (0.00-0.20); BASOPHILS % (AUTO) 0.3 % (0.0-5.0); EOSINOPHILS # (AUTO) 0.02 K/uL (0.00-0.70); EOSINOPHILS % (AUTO) 0.2 % (0.0-8.0); IMMATURE GRANULOCYTE ABSOLUTE 0.09 K/uL (0-1); LYMPHOCYTES # (AUTO) 1.3 K/uL (1.0-4.8); LYMPHOCYTES % (AUTO) 13.9 % (21.0-51.0); MEAN CORPUSCULAR HEMOGLOBIN 32.6 pg (27.0-33.0); MEAN CORPUSCULAR HGB CONC 33.2 g/dL (32.0-36.0); MEAN CORPUSCULAR VOLUME 98.2 fL (79-99); MONOCYTES # (AUTO) 0.8 K/uL (0.1-1.0); MONOCYTES % (AUTO) 8.4 % (3.0-13.0); NEUTROPHILS % (AUTO) 76.2 % (40.0-77.0); PLATELET COUNT (AUTO) 303 K/uL (130-400); RED BLOOD CELL COUNT(AUTO) 4.48 MIL/uL (4.50-6.20); RED CELL DISTRIBUTION WIDTH 15.9 % (11.0-15.5); WHITE BLOOD COUNT (AUTO) 9.2 K/uL (4.8-10.8)
[2023-08-16 10:32] LABS: ALBUMIN 3.1 g/dL (3.5-5.0); BILIRUBIN,TOTAL 2.9 mg/dL (0.2-1.0); CREATININE 1.2 mg/dL (0.5-1.3); POTASSIUM 3.5 mmol/L (3.5-5.1); TOTAL PROTEIN, SERUM 7.7 g/dL (6.0-8.3)
[2023-08-16 10:53] LABS: B-TYPE NATRIURETIC PEPTIDE 1530 pg/mL (0-100)
[2023-08-16 11:23] LABS: INR 1.36 (0.85-1.15); PROTHROMBIN TIME 15.7 SEC (9.6-11.6)
[2023-08-16] MEDS: FUROSEMIDE 40MG VIAL IV ONE (12:25)
[2023-08-16 12:34] LABS: APPEARANCE,URINE CLEAR (CLEAR); BILIRUBIN,URINE NEGATIVE (NEGATIVE); COLOR,URINE YELLOW (YELLOW); GLUCOSE, URINE (UA) NEGATIVE (NEGATIVE); KETONES,URINE NEGATIVE (NEGATIVE); LEUKOCYTE ESTERASE ,URINE NEGATIVE Leu/uL (NEGATIVE); NITRATE,URINE NEGATIVE (NEGATIVE); PH,URINE 5.5 (5.0-8.0); PROTEIN,URINE 50 mg/dL (NEGATIVE); UROBILINOGEN,URINE 6 mg/dL (0.2-1.0)
[2023-08-16 12:36] LABS: ADD UA MICROSCOPIC YES
[2023-08-16 12:46] LABS: HYALINE CASTS, URINE 51-100 /LPF (0-1 /LPF); MUCUS,URINE RARE LPF (None Seen); SQUAMOUS EPITHELIAL CELL,UR RARE /HPF (0-2)
[2023-08-16] MEDS: ACETAMINOPHEN WITH CODEINE 1 TAB TAB PO ONE (12:54)
[2023-08-16 13:23] VITALS: BP 133/74; PULSE 78; RESP 22; O2SAT 96
[2023-08-28] MEDS ORDERED: METO2.5T2 PO (14:22)
[2023-08-28] MEDS ORDERED: NITR0.4T50 SL (14:22)
[2023-08-28] MEDS ORDERED: ASPI-1005 PO (14:22)
[2023-08-28] MEDS ORDERED: ALPR-409 PO (14:22)
== END 2023-08-16 13:57 | disposition home or self-care (01) ==
LOC: EDH 09:55
DX: I50.9 Heart failure, unspecified (principal); E11.9 Type 2 diabetes mellitus without complications; R60.9 Edema, unspecified; G89.29 Other chronic pain; Z79.01 Long term (current) use of anticoagulants; Z79.899 Other long term (current) drug therapy; Z95.810 Presence of automatic (implantable) cardiac defibrillator
CPT/HCPCS: 99285; 96374; 71045; 84484; 80053; 83880; 85025; 85610; 81001; 36415; 93005; J1940

== ENCOUNTER → 2023-08-16 | Outpatient (CLI) | payer MEDICAID ==
[~2023-08-16] MED LIST changes: +ALPR-409 PO; +ASPI-1005 PO; +LIDOCAINE HCL 4% LTA SOL 4 ML VIAL TP ONE
== END | disposition home or self-care (01) ==
LOC: WHH 08:05
PROVIDERS: ATTEND Nurse Practitioner Family
DX: E11.622 Type 2 diabetes mellitus with other skin ulcer (principal); I70.248 Atherosclerosis of native arteries of left leg with ulceration of other part of lower leg; L97.822 Non-pressure chronic ulcer of other part of left lower leg with fat layer exposed; I70.232 Atherosclerosis of native arteries of right leg with ulceration of calf; L97.212 Non-pressure chronic ulcer of right calf with fat layer exposed; I70.242 Atherosclerosis of native arteries of left leg with ulceration of calf; L97.222 Non-pressure chronic ulcer of left calf with fat layer exposed; I70.233 Atherosclerosis of native arteries of right leg with ulceration of ankle; L97.312 Non-pressure chronic ulcer of right ankle with fat layer exposed; I70.238 Atherosclerosis of native arteries of right leg with ulceration of other part of lower leg; L97.811 Non-pressure chronic ulcer of other part of right lower leg limited to breakdown of skin; E11.621 Type 2 diabetes mellitus with foot ulcer; I70.235 Atherosclerosis of native arteries of right leg with ulceration of other part of foot; L97.512 Non-pressure chronic ulcer of other part of right foot with fat layer exposed; E11.51 Type 2 diabetes mellitus with diabetic peripheral angiopathy without gangrene; E11.22 Type 2 diabetes mellitus with diabetic chronic kidney disease; I13.0 Hypertensive heart and chronic kidney disease with heart failure and stage 1 through stage 4 chronic kidney disease, or unspecified chronic kidney disease; I50.23 Acute on chronic systolic (congestive) heart failure; I25.10 Atherosclerotic heart disease of native coronary artery without angina pectoris; E78.00 Pure hypercholesterolemia, unspecified; J44.9 Chronic obstructive pulmonary disease, unspecified; I48.20 Chronic atrial fibrillation, unspecified; E87.1 Hypo-osmolality and hyponatremia; F41.9 Anxiety disorder, unspecified; I25.2 Old myocardial infarction; E66.9 Obesity, unspecified; Z68.33 Body mass index [BMI] 33.0-33.9, adult; Z95.810 Presence of automatic (implantable) cardiac defibrillator; Z86.73 Personal history of transient ischemic attack (TIA), and cerebral infarction without residual deficits; Z95.1 Presence of aortocoronary bypass graft; Z79.01 Long term (current) use of anticoagulants; Z79.82 Long term (current) use of aspirin; Z79.899 Other long term (current) drug therapy
CPT/HCPCS: 11042; 11045; A6253; A6197; A4450; A6260

== ENCOUNTER → 2023-08-17 | Outpatient (CLI) | payer MEDICAID ==
[~2023-08-17] MED LIST changes: +ALPR-409 PO; +ASPI-1005 PO
== END | disposition home or self-care (01) ==
LOC: SHCH 14:51
PROVIDERS: ATTEND Internal Medicine Cardiovascular Disease
DX: I87.2 Venous insufficiency (chronic) (peripheral) (principal); R60.0 Localized edema
CPT/HCPCS: 93970

== ENCOUNTER 2023-08-20 23:39 | Emergency (ER) | payer MEDICAID ==
[~2023-08-20] VITALS: Ht 162.6 cm; Wt 93.4 kg
[~2023-08-20 23:39] MED LIST changes: -ALPR-409 PO; -ASPI-1005 PO
[2023-08-20 23:56] LABS: BASOPHILS # (AUTO) 0.04 K/uL (0.00-0.20); BASOPHILS % (AUTO) 0.3 % (0.0-5.0); EOSINOPHILS # (AUTO) 0.03 K/uL (0.00-0.70); EOSINOPHILS % (AUTO) 0.3 % (0.0-8.0); HEMATOCRIT 42.3 % (42-54); IMMATURE GRANULOCYTE ABSOLUTE 0.08 K/uL (0-1); LYMPHOCYTES # (AUTO) 1.1 K/uL (1.0-4.8); LYMPHOCYTES % (AUTO) 9.2 % (21.0-51.0); MEAN CORPUSCULAR HEMOGLOBIN 33.3 pg (27.0-33.0); MEAN CORPUSCULAR HGB CONC 33.8 g/dL (32.0-36.0); MEAN CORPUSCULAR VOLUME 98.4 fL (79-99); MONOCYTES # (AUTO) 0.8 K/uL (0.1-1.0); MONOCYTES % (AUTO) 6.8 % (3.0-13.0); NEUTROPHILS # (AUTO) 9.7 K/uL (1.8-7.7); NEUTROPHILS % (AUTO) 82.7 % (40.0-77.0); PLATELET COUNT (AUTO) 300 K/uL (130-400); RED CELL DISTRIBUTION WIDTH 16.5 % (11.0-15.5); WHITE BLOOD COUNT (AUTO) 11.7 K/uL (4.8-10.8)
[2023-08-21 00:11] LABS: BILIRUBIN,TOTAL 1.9 mg/dL (0.2-1.0); CREATININE 1.2 mg/dL (0.5-1.3); POTASSIUM 3.5 mmol/L (3.5-5.1); TOTAL PROTEIN, SERUM 7.4 g/dL (6.0-8.3)
[2023-08-21 00:28] LABS: COVID19 (SARS ANTIGEN RAPID) PRESUMPTIVE NEGATIVE (NEGATIVE); INFLUENZA TYPE A Negative For Type A (NEGATIVE); INFLUENZA TYPE B Negative For Type B (NEGATIVE)
[2023-08-21 00:31] LABS: B-TYPE NATRIURETIC PEPTIDE 1740 pg/mL (0-100)
[2023-08-21 00:34] VITALS: PULSE 70; RESP 16
[2023-08-21] MEDS: ALBUTEROL 0.083% 2.5 MG/3 ML INH IH ONE (00:34)
[2023-08-21] MEDS: NITROGLYCERIN 1GM OINT 1 INCH/1GM TD ONE (00:49)
[2023-08-21] MEDS: FUROSEMIDE 40MG VIAL IV ONE (00:49)
[2023-08-21 02:07] VITALS: BP 129/86; PULSE 89; RESP 18; O2SAT 95
[2023-08-21 02:35] LABS: APPEARANCE,URINE CLEAR (CLEAR); BILIRUBIN,URINE NEGATIVE (NEGATIVE); COLOR,URINE LIGHT-YELLOW (YELLOW); GLUCOSE, URINE (UA) NEGATIVE (NEGATIVE); KETONES,URINE NEGATIVE (NEGATIVE); LEUKOCYTE ESTERASE ,URINE NEGATIVE Leu/uL (NEGATIVE); NITRATE,URINE NEGATIVE (NEGATIVE); OCCULT BLOOD,URINE NEGATIVE (NEGATIVE); PROTEIN,URINE NEGATIVE (NEGATIVE)
[2023-08-21 02:39] LABS: ADD UA MICROSCOPIC NO
== END 2023-08-21 02:35 | disposition left against medical advice (07) ==
LOC: EDH 23:39
DX: E87.70 Fluid overload, unspecified (principal); I50.9 Heart failure, unspecified; R60.0 Localized edema; E11.9 Type 2 diabetes mellitus without complications; Z79.01 Long term (current) use of anticoagulants; Z79.899 Other long term (current) drug therapy; Z95.810 Presence of automatic (implantable) cardiac defibrillator; Z20.822 Contact with and (suspected) exposure to COVID-19
CPT/HCPCS: 99285; 71045; 87426; 80053; 83880; 85025; 87804 ×2; 81003; 36415; 93005; 93970; 96374; 94640; J1940

== ENCOUNTER 2023-08-23 15:34 | Emergency (ER) | payer MEDICAID ==
[~2023-08-23] VITALS: Ht 172.7 cm; Wt 99.8 kg
[~2023-08-23 15:34] MED LIST changes: -ALPR-409 PO; -ASPI-1005 PO; -LIDOCAINE HCL 4% LTA SOL 4 ML VIAL TP ONE
[2023-08-23 18:58] LABS: BASOPHILS # (AUTO) 0.05 K/uL (0.00-0.20); BASOPHILS % (AUTO) 0.5 % (0.0-5.0); EOSINOPHILS % (AUTO) 1.1 % (0.0-8.0); HEMATOCRIT 44.4 % (42-54); IMMATURE GRANULOCYTE ABSOLUTE 0.04 K/uL (0-1); LYMPHOCYTES # (AUTO) 1.1 K/uL (1.0-4.8); LYMPHOCYTES % (AUTO) 11.5 % (21.0-51.0); MEAN CORPUSCULAR HGB CONC 33.3 g/dL (32.0-36.0); MEAN CORPUSCULAR VOLUME 98.9 fL (79-99); MONOCYTES # (AUTO) 0.8 K/uL (0.1-1.0); MONOCYTES % (AUTO) 8.2 % (3.0-13.0); NEUTROPHILS # (AUTO) 7.3 K/uL (1.8-7.7); NEUTROPHILS % (AUTO) 78.3 % (40.0-77.0); PLATELET COUNT (AUTO) 309 K/uL (130-400); RED BLOOD CELL COUNT(AUTO) 4.49 MIL/uL (4.50-6.20); RED CELL DISTRIBUTION WIDTH 15.9 % (11.0-15.5); WHITE BLOOD COUNT (AUTO) 9.3 K/uL (4.8-10.8)
[2023-08-23 19:17] LABS: ALBUMIN 3.1 g/dL (3.5-5.0); BILIRUBIN,TOTAL 2.5 mg/dL (0.2-1.0); CREATININE 1.1 mg/dL (0.5-1.3); MAGNESIUM 1.6 mg/dL (1.80-2.40); POTASSIUM 3.1 mmol/L (3.5-5.1); TOTAL PROTEIN, SERUM 7.8 g/dL (6.0-8.3)
[2023-08-23 19:21] LABS: B-TYPE NATRIURETIC PEPTIDE 1660 pg/mL (0-100)
[2023-08-23 19:33] LABS: APPEARANCE,URINE CLEAR (CLEAR); BILIRUBIN,URINE NEGATIVE (NEGATIVE); COLOR,URINE YELLOW (YELLOW); GLUCOSE, URINE (UA) NEGATIVE (NEGATIVE); KETONES,URINE NEGATIVE (NEGATIVE); LEUKOCYTE ESTERASE ,URINE NEGATIVE Leu/uL (NEGATIVE); NITRATE,URINE NEGATIVE (NEGATIVE); PROTEIN,URINE 50 mg/dL (NEGATIVE); UROBILINOGEN,URINE >=8.0 mg/dL (0.2-1.0)
[2023-08-23 19:34] LABS: ADD UA MICROSCOPIC YES
[2023-08-23 19:35] LABS: SQUAMOUS EPITHELIAL CELL,UR RARE /HPF (0-2); WBC,URINE 0-1 /HPF (0-1)
[2023-08-23] MEDS ORDERED: LORAZEPAM 2 MG TABLET PO ONE (20:30)
[2023-08-23] MEDS: POTASSIUM BICARB/CIT AC 25 MEQ TABLET.EFF PO ONE (20:42)
[2023-08-23] MEDS: FUROSEMIDE 100MG VIAL IVP ONE (20:43)
[2023-08-23] MEDS: LORAZEPAM 1 MG TABLET PO ONE (21:20)
[2023-08-23] MEDS: FUROSEMIDE 40MG VIAL ONE (21:21)
[2023-08-24 01:14] VITALS: BP 136/98; PULSE 95; RESP 14
[2023-08-24] MEDS: MAGNESIUM OXIDE 400 MG TABLET PO ONE (02:16)
[2023-08-28] MEDS ORDERED: ALPR-409 PO (14:22)
[2023-08-28] MEDS ORDERED: METO2.5T2 PO (14:22)
[2023-08-28] MEDS ORDERED: ASPI-1005 PO (14:22)
[2023-08-28] MEDS ORDERED: NITR0.4T50 SL (14:22)
== END 2023-08-24 02:22 | disposition home or self-care (01) ==
LOC: EDH 15:34
DX: T69.022A Immersion foot, left foot, initial encounter (principal); T69.021A Immersion foot, right foot, initial encounter; E87.70 Fluid overload, unspecified; I50.9 Heart failure, unspecified; E83.42 Hypomagnesemia; E87.6 Hypokalemia
CPT/HCPCS: 99285; 96374; 71045; 87426; 84443; 83735; 84484; 80053; 83880; 85025; 81001; 36415; 93005; J1940

== ENCOUNTER → 2023-08-23 | Outpatient (CLI) | payer MEDICAID ==
[~2023-08-23] MED LIST changes: +ALPR-409 PO; +ASPI-1005 PO; +LIDOCAINE HCL 4% LTA SOL 4 ML VIAL TP ONE
== END | disposition home or self-care (01) ==
LOC: WHH 08:05
PROVIDERS: ATTEND Nurse Practitioner Family
DX: E11.622 Type 2 diabetes mellitus with other skin ulcer (principal); I70.248 Atherosclerosis of native arteries of left leg with ulceration of other part of lower leg; L97.822 Non-pressure chronic ulcer of other part of left lower leg with fat layer exposed; I70.242 Atherosclerosis of native arteries of left leg with ulceration of calf; L97.222 Non-pressure chronic ulcer of left calf with fat layer exposed; I70.232 Atherosclerosis of native arteries of right leg with ulceration of calf; L97.212 Non-pressure chronic ulcer of right calf with fat layer exposed; I70.233 Atherosclerosis of native arteries of right leg with ulceration of ankle; L97.312 Non-pressure chronic ulcer of right ankle with fat layer exposed; E11.51 Type 2 diabetes mellitus with diabetic peripheral angiopathy without gangrene; E11.22 Type 2 diabetes mellitus with diabetic chronic kidney disease; I13.0 Hypertensive heart and chronic kidney disease with heart failure and stage 1 through stage 4 chronic kidney disease, or unspecified chronic kidney disease; I50.23 Acute on chronic systolic (congestive) heart failure; I25.10 Atherosclerotic heart disease of native coronary artery without angina pectoris; E78.00 Pure hypercholesterolemia, unspecified; J44.9 Chronic obstructive pulmonary disease, unspecified; I48.20 Chronic atrial fibrillation, unspecified; E87.1 Hypo-osmolality and hyponatremia; F41.9 Anxiety disorder, unspecified; I25.2 Old myocardial infarction; E66.9 Obesity, unspecified; Z68.33 Body mass index [BMI] 33.0-33.9, adult; Z95.810 Presence of automatic (implantable) cardiac defibrillator; Z86.73 Personal history of transient ischemic attack (TIA), and cerebral infarction without residual deficits; Z95.1 Presence of aortocoronary bypass graft; Z79.01 Long term (current) use of anticoagulants; Z79.82 Long term (current) use of aspirin; Z79.899 Other long term (current) drug therapy
CPT/HCPCS: 11042; 11045; A6253; A6207; A6196; A6197

== ENCOUNTER → 2023-09-09 | Outpatient (CLI) | payer MEDICAID ==
[~2023-09-09] MED LIST changes: -ACET-2806 PO; +ALPR-409 PO; +ASPI-1005 PO; -ATOR40TA69 PO; -BUDE10.27 IH; -CYCL-309 PO
[2023-09-09 12:44] LABS: MAGNESIUM 1.7 mg/dL (1.80-2.40); POTASSIUM 4.4 mmol/L (3.5-5.1)
== END | disposition home or self-care (01) ==
LOC: LAB 08:39
PROVIDERS: ATTEND Physician Assistant
DX: I25.5 Ischemic cardiomyopathy (principal)
CPT/HCPCS: 36415; 80048; 83735; 83880

== ENCOUNTER → 2023-09-13 | Outpatient (CLI) | payer MEDICAID ==
[~2023-09-13] MED LIST changes: +LIDOCAINE HCL 4% LTA SOL 4 ML VIAL TP ONE
== END | disposition home or self-care (01) ==
LOC: WHH 08:28
PROVIDERS: ATTEND Nurse Practitioner Family
DX: E11.622 Type 2 diabetes mellitus with other skin ulcer (principal); I70.248 Atherosclerosis of native arteries of left leg with ulceration of other part of lower leg; L97.822 Non-pressure chronic ulcer of other part of left lower leg with fat layer exposed; I70.242 Atherosclerosis of native arteries of left leg with ulceration of calf; L97.222 Non-pressure chronic ulcer of left calf with fat layer exposed; I70.232 Atherosclerosis of native arteries of right leg with ulceration of calf; L97.212 Non-pressure chronic ulcer of right calf with fat layer exposed; I70.233 Atherosclerosis of native arteries of right leg with ulceration of ankle; L97.312 Non-pressure chronic ulcer of right ankle with fat layer exposed; E11.51 Type 2 diabetes mellitus with diabetic peripheral angiopathy without gangrene; E11.22 Type 2 diabetes mellitus with diabetic chronic kidney disease; I13.0 Hypertensive heart and chronic kidney disease with heart failure and stage 1 through stage 4 chronic kidney disease, or unspecified chronic kidney disease; I50.23 Acute on chronic systolic (congestive) heart failure; I25.10 Atherosclerotic heart disease of native coronary artery without angina pectoris; E78.00 Pure hypercholesterolemia, unspecified; J44.9 Chronic obstructive pulmonary disease, unspecified; I48.20 Chronic atrial fibrillation, unspecified; E87.1 Hypo-osmolality and hyponatremia; F41.9 Anxiety disorder, unspecified; I25.2 Old myocardial infarction; E66.9 Obesity, unspecified; Z68.33 Body mass index [BMI] 33.0-33.9, adult; Z95.810 Presence of automatic (implantable) cardiac defibrillator; Z86.73 Personal history of transient ischemic attack (TIA), and cerebral infarction without residual deficits; Z95.1 Presence of aortocoronary bypass graft; Z79.01 Long term (current) use of anticoagulants; Z79.82 Long term (current) use of aspirin; Z79.899 Other long term (current) drug therapy
CPT/HCPCS: 11042; 11045

== ENCOUNTER → 2023-09-20 | Outpatient (CLI) | payer MEDICAID | END | disposition home or self-care (01) | LOC: WHH 08:08 | PROVIDERS: ATTEND Nurse Practitioner Family | DX: E11.622 Type 2 diabetes mellitus with other skin ulcer (principal); I70.248 Atherosclerosis of native arteries of left leg with ulceration of other part of lower leg; L97.822 Non-pressure chronic ulcer of other part of left lower leg with fat layer exposed; I70.242 Atherosclerosis of native arteries of left leg with ulceration of calf; L97.222 Non-pressure chronic ulcer of left calf with fat layer exposed; I70.232 Atherosclerosis of native arteries of right leg with ulceration of calf; L97.212 Non-pressure chronic ulcer of right calf with fat layer exposed; E11.51 Type 2 diabetes mellitus with diabetic peripheral angiopathy without gangrene; I13.0 Hypertensive heart and chronic kidney disease with heart failure and stage 1 through stage 4 chronic kidney disease, or unspecified chronic kidney disease; N18.4 Chronic kidney disease, stage 4 (severe); I50.23 Acute on chronic systolic (congestive) heart failure; I25.10 Atherosclerotic heart disease of native coronary artery without angina pectoris; E78.00 Pure hypercholesterolemia, unspecified; J44.9 Chronic obstructive pulmonary disease, unspecified; I48.20 Chronic atrial fibrillation, unspecified; F41.9 Anxiety disorder, unspecified; I25.2 Old myocardial infarction; E66.9 Obesity, unspecified; Z68.33 Body mass index [BMI] 33.0-33.9, adult; Z95.810 Presence of automatic (implantable) cardiac defibrillator; Z86.73 Personal history of transient ischemic attack (TIA), and cerebral infarction without residual deficits; Z95.1 Presence of aortocoronary bypass graft; Z79.01 Long term (current) use of anticoagulants; Z79.82 Long term (current) use of aspirin; Z79.899 Other long term (current) drug therapy | CPT/HCPCS: 99214 ==

== ENCOUNTER → 2023-10-04 | Outpatient (CLI) | payer MEDICAID ==
[~2023-10-04] MED LIST changes: -LIDOCAINE HCL 4% LTA SOL 4 ML VIAL TP ONE
== END | disposition home or self-care (01) ==
LOC: WHH 08:18
PROVIDERS: ATTEND Nurse Practitioner Family
DX: E11.622 Type 2 diabetes mellitus with other skin ulcer (principal); I70.232 Atherosclerosis of native arteries of right leg with ulceration of calf; L97.212 Non-pressure chronic ulcer of right calf with fat layer exposed; I70.242 Atherosclerosis of native arteries of left leg with ulceration of calf; L97.222 Non-pressure chronic ulcer of left calf with fat layer exposed; E11.51 Type 2 diabetes mellitus with diabetic peripheral angiopathy without gangrene; E11.22 Type 2 diabetes mellitus with diabetic chronic kidney disease; I13.0 Hypertensive heart and chronic kidney disease with heart failure and stage 1 through stage 4 chronic kidney disease, or unspecified chronic kidney disease; N18.4 Chronic kidney disease, stage 4 (severe); I50.23 Acute on chronic systolic (congestive) heart failure; J44.9 Chronic obstructive pulmonary disease, unspecified; I48.20 Chronic atrial fibrillation, unspecified; I25.10 Atherosclerotic heart disease of native coronary artery without angina pectoris; E78.00 Pure hypercholesterolemia, unspecified; I25.2 Old myocardial infarction; E66.9 Obesity, unspecified; F41.9 Anxiety disorder, unspecified; Z68.33 Body mass index [BMI] 33.0-33.9, adult; Z95.1 Presence of aortocoronary bypass graft; Z79.01 Long term (current) use of anticoagulants; Z79.82 Long term (current) use of aspirin; Z79.899 Other long term (current) drug therapy
CPT/HCPCS: 99214; G0463

== ENCOUNTER → 2023-10-05 | Outpatient (CLI) | payer MEDICAID ==
[2023-10-05 12:09] LABS: MAGNESIUM 1.8 mg/dL (1.80-2.40); POTASSIUM 3.5 mmol/L (3.5-5.1)
== END | disposition home or self-care (01) ==
LOC: LAB 09:24
PROVIDERS: ATTEND Internal Medicine Cardiovascular Disease
DX: I47.20 Ventricular tachycardia, unspecified (principal)
CPT/HCPCS: 36415; 80048; 83735

== ENCOUNTER 2023-10-12 05:44 | Emergency (ER) | payer MEDICAID ==
[~2023-10-12] VITALS: Ht 162.6 cm; Wt 82.6 kg
[2023-10-12 06:22] LABS: BASOPHILS # (AUTO) 0.08 K/uL (0.00-0.20); EOSINOPHILS # (AUTO) 0.12 K/uL (0.00-0.70); EOSINOPHILS % (AUTO) 1.4 % (0.0-8.0); HEMATOCRIT 43.7 % (42-54); IMMATURE GRANULOCYTE ABSOLUTE 0.04 K/uL (0-1); LYMPHOCYTES # (AUTO) 1.3 K/uL (1.0-4.8); LYMPHOCYTES % (AUTO) 15.7 % (21.0-51.0); MEAN CORPUSCULAR HGB CONC 34.3 g/dL (32.0-36.0); MEAN CORPUSCULAR VOLUME 96.3 fL (79-99); MONOCYTES # (AUTO) 0.9 K/uL (0.1-1.0); MONOCYTES % (AUTO) 11.1 % (3.0-13.0); NEUTROPHILS # (AUTO) 5.8 K/uL (1.8-7.7); NEUTROPHILS % (AUTO) 70.3 % (40.0-77.0); PLATELET COUNT (AUTO) 230 K/uL (130-400); RED BLOOD CELL COUNT(AUTO) 4.54 MIL/uL (4.50-6.20); RED CELL DISTRIBUTION WIDTH 14.8 % (11.0-15.5); WHITE BLOOD COUNT (AUTO) 8.3 K/uL (4.8-10.8)
[2023-10-12 06:38] LABS: ALBUMIN 3.5 g/dL (3.5-5.0); BILIRUBIN,TOTAL 1.9 mg/dL (0.2-1.0); MAGNESIUM 1.8 mg/dL (1.80-2.40); POTASSIUM 4.2 mmol/L (3.5-5.1); TOTAL PROTEIN, SERUM 7.7 g/dL (6.0-8.3)
[2023-10-12 06:42] LABS: INR 1.16 (0.85-1.15); PROTHROMBIN TIME 13.5 SEC (9.6-11.6)
[2023-10-12 07:00] LABS: B-TYPE NATRIURETIC PEPTIDE 578 pg/mL (0-100)
[2023-10-12 07:19] VITALS: BP 120/89; PULSE 85; RESP 17; O2SAT 100
[2023-10-12 08:02] LABS: APPEARANCE,URINE CLEAR (CLEAR); BILIRUBIN,URINE NEGATIVE (NEGATIVE); COLOR,URINE YELLOW (YELLOW); GLUCOSE, URINE (UA) NEGATIVE (NEGATIVE); KETONES,URINE NEGATIVE (NEGATIVE); LEUKOCYTE ESTERASE ,URINE NEGATIVE Leu/uL (NEGATIVE); NITRATE,URINE NEGATIVE (NEGATIVE); OCCULT BLOOD,URINE NEGATIVE (NEGATIVE); PH,URINE 5.5 (5.0-8.0); PROTEIN,URINE 20 mg/dL (NEGATIVE)
[2023-10-12 08:06] LABS: ADD UA MICROSCOPIC YES
[2023-10-12 08:09] LABS: RBC,URINE 0-1 /HPF (0-1); SQUAMOUS EPITHELIAL CELL,UR RARE /HPF (0-2); WBC,URINE 0-1 /HPF (0-1)
== END 2023-10-12 08:16 | disposition home or self-care (01) ==
LOC: EDH 05:44
DX: I11.0 Hypertensive heart disease with heart failure (principal); I50.9 Heart failure, unspecified; E11.9 Type 2 diabetes mellitus without complications; E78.00 Pure hypercholesterolemia, unspecified; J44.9 Chronic obstructive pulmonary disease, unspecified; I25.10 Atherosclerotic heart disease of native coronary artery without angina pectoris; J90 Pleural effusion, not elsewhere classified
CPT/HCPCS: 36415; 71045; 80053; 81001; 82550; 83735; 83880; 84484; 85025; 85610; 93005

== ENCOUNTER → 2023-10-18 | Outpatient (CLI) | payer MEDICAID | END | disposition home or self-care (01) | LOC: WHH 08:16 | PROVIDERS: ATTEND Nurse Practitioner Family | DX: E11.622 Type 2 diabetes mellitus with other skin ulcer (principal); L97.212 Non-pressure chronic ulcer of right calf with fat layer exposed; I70.232 Atherosclerosis of native arteries of right leg with ulceration of calf; I70.242 Atherosclerosis of native arteries of left leg with ulceration of calf; L97.222 Non-pressure chronic ulcer of left calf with fat layer exposed; E11.51 Type 2 diabetes mellitus with diabetic peripheral angiopathy without gangrene; E11.22 Type 2 diabetes mellitus with diabetic chronic kidney disease; I13.0 Hypertensive heart and chronic kidney disease with heart failure and stage 1 through stage 4 chronic kidney disease, or unspecified chronic kidney disease; N18.4 Chronic kidney disease, stage 4 (severe); I50.23 Acute on chronic systolic (congestive) heart failure; J44.9 Chronic obstructive pulmonary disease, unspecified; I48.20 Chronic atrial fibrillation, unspecified; I25.10 Atherosclerotic heart disease of native coronary artery without angina pectoris; E78.00 Pure hypercholesterolemia, unspecified; I25.2 Old myocardial infarction; E66.9 Obesity, unspecified; F41.9 Anxiety disorder, unspecified; Z68.33 Body mass index [BMI] 33.0-33.9, adult; Z95.1 Presence of aortocoronary bypass graft; Z79.82 Long term (current) use of aspirin; Z79.899 Other long term (current) drug therapy | CPT/HCPCS: 99214 ==

== ENCOUNTER → 2023-11-01 | Outpatient (CLI) | payer MEDICAID ==
[~2023-11-01] MED LIST changes: +BUDE10.22 IH
== END | disposition home or self-care (01) ==
LOC: WHH 08:09
PROVIDERS: ATTEND Nurse Practitioner Family
DX: E11.622 Type 2 diabetes mellitus with other skin ulcer (principal); L97.212 Non-pressure chronic ulcer of right calf with fat layer exposed; I70.232 Atherosclerosis of native arteries of right leg with ulceration of calf; I70.242 Atherosclerosis of native arteries of left leg with ulceration of calf; L97.222 Non-pressure chronic ulcer of left calf with fat layer exposed; E11.51 Type 2 diabetes mellitus with diabetic peripheral angiopathy without gangrene; E11.22 Type 2 diabetes mellitus with diabetic chronic kidney disease; I13.0 Hypertensive heart and chronic kidney disease with heart failure and stage 1 through stage 4 chronic kidney disease, or unspecified chronic kidney disease; N18.4 Chronic kidney disease, stage 4 (severe); I50.23 Acute on chronic systolic (congestive) heart failure; J44.9 Chronic obstructive pulmonary disease, unspecified; I48.20 Chronic atrial fibrillation, unspecified; I25.10 Atherosclerotic heart disease of native coronary artery without angina pectoris; E78.00 Pure hypercholesterolemia, unspecified; I25.2 Old myocardial infarction; E66.9 Obesity, unspecified; F41.9 Anxiety disorder, unspecified; Z68.33 Body mass index [BMI] 33.0-33.9, adult; Z95.1 Presence of aortocoronary bypass graft; Z79.82 Long term (current) use of aspirin; Z79.899 Other long term (current) drug therapy
CPT/HCPCS: 99214; A6250

== ENCOUNTER 2024-01-02 02:01 | Emergency (ER) | payer MEDICAID ==
[~2024-01-02] VITALS: Ht 162.6 cm; Wt 130.6 kg
[~2024-01-02 02:01] MED LIST changes: -ALPR-409 PO; -POTA99TA26 PO; -VERI2.5T PO
[2024-01-02 02:02] VITALS: BP 126/82; PULSE 95; RESP 22
== END 2024-01-02 02:38 | disposition left against medical advice (07) ==
LOC: EDH 02:01
DX: Z53.21 Procedure and treatment not carried out due to patient leaving prior to being seen by health care provider (principal); R06.02 Shortness of breath
CPT/HCPCS: 36415; 71045

== ENCOUNTER → 2024-06-22 | Outpatient (CLI) | payer MEDICAID ==
--- NOTE | 2024-06-25 07:53 | HMCSR ---
APPROVED REPORT Bilateral Lower Extremity Venous Study for DVT., Venous Competence. Indications I87.1 Vein Imaging CFV (R): Pulsatile flow, augmentation and compression. No evidence of DVT. 11.9mm 839ms SFJ (R): Pulsatile flow, augmentation and compression. No evidence of DVT. FEM (R): Pulsatile flow, augmentation and compression. No evidence of DVT. POP (R): Pulsatile flow, augmentation and compression. No evidence of DVT. DFV (R): Pulsatile flow, augmentation and compression. No evidence of DVT. PTV (R): Pulsatile flow, augmentation and compression. No evidence of DVT. Peroneals (R): Pulsatile flow, augmentation and compression. No evidence of DVT. CFV (L): Pulsatile flow, augmentation and compression. No evidence of DVT. 11.1mm 2742ms SFJ (L): Pulsatile flow, augmentation and compression. No evidence of DVT. FEM (L): Pulsatile flow, augmentation and compression. No evidence of DVT. POP (L): Pulsatile flow, augmentation and compression. No evidence of DVT. . DFV (L): Pulsatile flow, augmentation and compression. No evidence of DVT. PTV (L): Pulsatile flow, augmentation and compression. No evidence of DVT. Peroneals (L): Pulsatile flow, augmentation and compression. No evidence of DVT. Technologist Impression Deep veins of blilateral lower extremities appear patent and compressible without thrombus. Pulsatile flow, augmentation and compression in the bilateral lower extremites. Deep vein relux seen in LCFV Superficial venous insufficiency noted in the RGSV/Accessory and RSSV. RGSV junction 3.7mm 267ms (cluster of tortuous veins) thigh 3.0mm 0.0ms (runs anterior and end above knee) (residual) knee 3.1mm 328ms (does not connect proximally) calf 3.1mm 0.0ms (several variocities) RSSV prox 3.7mm 0.0ms mid 3.9mm 1183ms LGSV junction 4.7mm 0.0ms thigh 4.0mm 0.0ms knee 4.9mm 0.0ms calf 3.2mm 144ms LSSV prox 3.5mm 250ms mid 3.3mm 0.0ms Conclusion Deep vein relux seen in LCFV Superficial venous insufficiency noted in the RGSV/Accessory and RSSV. Consider formal venography with intravascular ultrasound if iliac vein compression is suspected Conclusion Deep vein relux seen in LCFV Superficial venous insufficiency noted in the RGSV/Accessory and RSSV. Consider formal venography with intravascular ultrasound if iliac vein compression is suspected
== END | disposition home or self-care (01) ==
LOC: SHCH 14:53
PROVIDERS: ATTEND Internal Medicine Cardiovascular Disease
DX: I87.2 Venous insufficiency (chronic) (peripheral) (principal); I87.1 Compression of vein
CPT/HCPCS: 93970

== ENCOUNTER 2024-08-03 07:00 | Day surgery (SDC) | payer MEDICAID ==
[2024-08-01 11:13] VITALS: BP 95/71; PULSE 92; RESP 19; TEMP 98.1
[2024-08-01 11:15] LABS: BASOPHILS # (AUTO) 0.06 K/uL (0.00-0.20); BASOPHILS % (AUTO) 0.8 % (0.0-5.0); EOSINOPHILS # (AUTO) 0.13 K/uL (0.00-0.70); EOSINOPHILS % (AUTO) 1.8 % (0.0-8.0); HEMATOCRIT 47.7 % (42-54); IMMATURE GRANULOCYTE ABSOLUTE 0.03 K/uL (0-1); INR 1.29 (0.85-1.15); LYMPHOCYTES % (AUTO) 13.5 % (21.0-51.0); MEAN CORPUSCULAR HEMOGLOBIN 30.9 pg (27.0-33.0); MEAN CORPUSCULAR HGB CONC 32.7 g/dL (32.0-36.0); MEAN CORPUSCULAR VOLUME 94.5 fL (79-99); MONOCYTES # (AUTO) 0.7 K/uL (0.1-1.0); MONOCYTES % (AUTO) 9.9 % (3.0-13.0); NEUTROPHILS # (AUTO) 5.3 K/uL (1.8-7.7); NEUTROPHILS % (AUTO) 73.6 % (40.0-77.0); PLATELET COUNT (AUTO) 177 K/uL (130-400); PROTHROMBIN TIME 13.3 SEC (9.6-11.6); RED BLOOD CELL COUNT(AUTO) 5.05 MIL/uL (4.50-6.20); RED CELL DISTRIBUTION WIDTH 15.1 % (11.0-15.5); WHITE BLOOD COUNT (AUTO) 7.3 K/uL (4.8-10.8)
[2024-08-01 11:16] LABS: PARTIAL THROMBOPLASTIN TIME 27.6 SEC (26.3-35.5)
--- NOTE | 2024-08-02 12:18 | NUR ---
RE: LABS REPORTED PT 13.3/INR 1.29/PT 27.6 TO NATHANIEL ISRAEL. NO NEW ORDERS RECEIVED.
[~2024-08-03] VITALS: Ht 162.6 cm; Wt 83.3 kg
[2024-08-03] VITALS (8 sets, daily range): BP systolic 100–117; BP diastolic 71–81; PULSE 77–85; RESP 16–20; TEMP 97–97.3
[~2024-08-03 07:00] MED LIST changes: -APIX5TAB PO; -ASPI-1005 PO; +ASPI-1443 PO; -GABA-529 PO; +LACT-441 PO; -METO2.5T2 PO; +MILRINONE IV; +POTASSIUM CHLORIDE PO
[2024-08-03] MEDS ORDERED: HEParin-NS 1,000 UNIT/500 ML 1,000 ML IV ONE (08:37)
[2024-08-03] MEDS ORDERED: IODIXANOL 320 MG/ML 100 ML VIAL ONE ×2 (08:37→08:38)
[2024-08-03] MEDS ORDERED: LIDOCAINE HCL 400MG/20ML VIAL ONE (08:37)
[2024-08-03] MEDS ORDERED: HEParin 10,000 UNIT/10ML (1,000 UNIT/ML) VIAL ONE (08:37)
[2024-08-03] MEDS ORDERED: MIDAZOLAM HCL 1 MG/ML 2ML VIAL ONE (08:48)
[2024-08-03] MEDS ORDERED: FENTanyl CITRate PF 50 MCG/1 ML 2ML VIAL ONE (08:48)
[2024-08-03] MEDS ORDERED: NITROGLYCERIN 50MG VIAL ONE (08:49)
[2024-08-03] MEDS ORDERED: DEXTROSE 50%-WATER 50 ML DISP.SYRIN IV PRN (09:30)
[2024-08-03] MEDS ORDERED: GLUCAGON 1MG KIT 1 MG ML IM PRN (09:30)
--- NOTE | 2024-08-03 09:30 | PRN ---
Procedure Note INDICATION FOR PROCEDURE: [] CHRONIC VENOUS STASIS CHANGES CONCERN FOR ILIAC VEIN COMPRESSION PROCEDURE: [] Conscious sedation Left common femoral vein sheath placement 9 [place]err[place]ian Bilateral common femoral venogram Intravascular ultrasound of IVC, bilateral common iliac external iliac and common femoral veins DATE OF PROCEDURE: August 03, 2024 DOLPHIN RESEARCHER: Renaldo Hickman MD, F.A.C.C. PROCEDURE NOTE: [] Patient brought to catheterization suite and prepped and draped in sterile fashion. An IV was started if not already in place and both groins were exposed for arterial access and venous access. 2% lidocaine was used for local anesthesia and then a micro puncture kit was used to gain access and once free flow blood was seen modified Seldinger technique was utilized to place a 9 [place] sheath into the left common femoral vein. Next venogram was performed. Next a Glidewire was then placed in the IVC and an IVUS catheter was then placed over wire and interrogation was then performed of the IVC left common iliac external iliac common femoral vein. IVUS catheter was removed omni flush catheter was then used to direct the Glidewire to the right common femoral vein. Next Omni flush catheter was then advanced wire was pulled venogram was performed and then wire was placed back in Omni flush catheter was then removed and then IVUS catheter was then placed over wire and interrogation was then done of the right common femoral vein external iliac vein and common iliac vein. A fter measurements were obtained as described below test was terminated Vascade closure system was used for closure of venous access site and no complications occurred. FINDINGS: [] There was no evidence of iliac vein compression bilaterally IMPRESSION: [] Portal hypertension as source of chronic venous stasis changes PLAN: [] Continue with prior treatments Discharge home later today RENALDO HICKMAN MD Aug 03, 2024 09:30
[2024-08-03] MEDS ORDERED: INSULIN humuLIN R 100 UNIT/ML 3ML SQ SCH (11:30)
== END 2024-08-03 11:55 | disposition home or self-care (01) ==
LOC: DAH 07:00
PROVIDERS: ATTEND Internal Medicine Cardiovascular Disease
DX: I87.1 Compression of vein (principal); I25.10 Atherosclerotic heart disease of native coronary artery without angina pectoris; I11.0 Hypertensive heart disease with heart failure; I50.22 Chronic systolic (congestive) heart failure; E11.9 Type 2 diabetes mellitus without complications; E78.5 Hyperlipidemia, unspecified; I25.5 Ischemic cardiomyopathy; I07.1 Rheumatic tricuspid insufficiency; I48.21 Permanent atrial fibrillation; Z82.49 Family history of ischemic heart disease and other diseases of the circulatory system; Z98.890 Other specified postprocedural states
CPT/HCPCS: 80048; 85025; 85610; 85730; 36415; 75822; 36012; 37252; 37253 ×5; 82948; C1769; C1894 ×2; C1760; C1753; J3010; J3490 ×2; J2250; J1644; Q9967; A4215; A4222; A4221; A4663; A4216; A4606; A4223 ×3; 99156; 99157

== ENCOUNTER → 2024-09-20 | Outpatient (CLI) | payer MEDICAID | END | disposition home or self-care (01) | LOC: WHH 10:42 | PROVIDERS: ATTEND Family Medicine | DX: I89.0 Lymphedema, not elsewhere classified (principal); I70.203 Unspecified atherosclerosis of native arteries of extremities, bilateral legs; E11.51 Type 2 diabetes mellitus with diabetic peripheral angiopathy without gangrene; J44.9 Chronic obstructive pulmonary disease, unspecified; I11.0 Hypertensive heart disease with heart failure; I50.9 Heart failure, unspecified; E78.5 Hyperlipidemia, unspecified; I48.91 Unspecified atrial fibrillation; I25.10 Atherosclerotic heart disease of native coronary artery without angina pectoris; Z79.899 Other long term (current) drug therapy | CPT/HCPCS: 99215; A6250 ==

== ENCOUNTER 2024-10-30 14:30 | Inpatient (IN) | payer MEDICAID ==
[~2024-10-30] VITALS: Ht 162.6 cm; Wt 81.7 kg
[2024-10-30] MEDS: furoSEMIDE 20MG VIAL IV SCH (14:57)
--- NOTE | 2024-10-30 14:58 | EKG ---
[facility] Test Date: 2024-10-30 Test Time: 14:47:01 Pat Name: MARY STEWART Department: [facility] Room: ED Gender: M Health Specialist: [id number] : 1960 Requested By: NICOLETTE SWAIN Order Number: [id number] Reading MD: Zane Jaquez Measurements Intervals [place] Rate: 76 P: 0 WA: 144 QRS: 181 QRSD: 146 T: -22 QT: 446 QTc: 521 Interpretive Statements Ventricular-paced complexes Compared to ECG 12/27/2023 09:14:50 Atrial fibrillation no longer present Electronically Signed On 10-30-2024 19:46:31 CDT by Zane Jaquez Please click the below link to view image of tracing.
[2024-10-30] MEDS ORDERED: acetaMINOPHEN 325 MG TAB PO PRN (15:00)
[2024-10-30 15:02] LABS: HEMATOCRIT 47.2 % (42-54); MEAN CORPUSCULAR HEMOGLOBIN 30.5 pg (27.0-33.0); MEAN CORPUSCULAR HGB CONC 33.1 g/dL (32.0-36.0); MEAN CORPUSCULAR VOLUME 92.4 fL (79-99); PLATELET COUNT (AUTO) 190 K/uL (130-400); RED BLOOD CELL COUNT(AUTO) 5.11 MIL/uL (4.50-6.20); RED CELL DISTRIBUTION WIDTH 15.8 % (11.0-15.5)
[2024-10-30 15:12] LABS: CREATININE 1.3 mg/dL (0.5-1.3); INR 1.14 (0.85-1.15); POTASSIUM 3.9 mmol/L (3.5-5.1); PROTHROMBIN TIME 11.9 SEC (9.6-11.6)
[2024-10-30 15:13] LABS: PARTIAL THROMBOPLASTIN TIME 26.8 SEC (26.3-35.5)
[2024-10-30 15:17] LABS: BILIRUBIN,TOTAL 1.3 mg/dL (0.2-1.0)
--- NOTE | 2024-10-30 15:25 | NUR ---
BENCHMARK CONSULT: PATIENT REPORT GIVEN TO UZIEL FRIED
[2024-10-30 15:31] LABS: EOSINOPHILS % (MANUAL) 3 % (1-6); LYMPHOCYTES % (MANUAL) 9 % (22-44); MONOCYTES % (MANUAL) 10 % (2-9); SEGMENTED NEUTROPHILS % 78 % (40-70); TOTAL CELLS COUNTED 100
[2024-10-30 15:32] LABS: MAN.DIFF COMMENT-IMPRESSION MANUAL DIFFERENTIAL; PLATELET MORPHOLOGY COMMENT ADEQUATE; WBC MORPHOLOGY REACTIVE LYMPHS 1+
[2024-10-30 15:34] LABS: B-TYPE NATRIURETIC PEPTIDE 620 pg/mL (0-100)
--- NOTE | 2024-10-30 15:52 | HMCIMG ---
CHEST 1VW REASON: ACUTE CHRONIC CHF, HEART FAILURE COMPARISON: 01/02/2024 FINDINGS: There is mild cardiomegaly. There is no pulmonary vascular congestion. There are small bilateral pleural effusions. Upper lungs are clear. Pacemaker and previous median sternotomy are noted. IMPRESSION: 1. Small bilateral pleural effusions with mild bibasilar atelectasis. 2. Stable [id number] cardiomegaly compared to prior exam 01/02/2024. 3. No evidence of pulmonary vascular congestion on the current exam.
--- NOTE | 2024-10-30 19:34 | CONS ---
[facility] CARDIAC ELECTROPHYSIOLOGY CONSULTATION Date Patient Seen: Oct 30, 2024 Time of Visit: 16:10 Reason for Consultation: Acute on chronic right and left heart failure History of Present Illness: The patient is a is a 64-year-old male with a history of coronary artery disease status post PCI to the circumflex and LAD in the setting of an [place] in 2005, subsequent CABG x3 in January 2016, chronic heart failure with reduced ejection fraction, ischemic cardiomyopathy, hypertension, type 2 diabetes mellitus and hyperlipidemia. He is status post single-chamber ICD (Dx) implant in 03/31/2023 with biventricular ICD upgrade with AV node ablation 07/08/2023 due to permanent atrial fibrillation with inadequate rate control.He had been scheduled for watchman implant in August 2024, however this was rescheduled due to limited availability. He continues to undergo thoracocentesis and paracentesis on an almost weekly basis. This is very depressing to him as he feels that he is just going through the motions. What is most distressing to him is the accumulation of fluid. He has a difficult time understanding why he continues to retain fluid. He feels fatigued which is persistent. He has not had any palpitations, syncope or near syncope. A few months ago the patient presented for echo optimization of his biventricular device. The current settings at that time were found to be already optimal, and no changes were made. His ejection fraction was calculated at 28%. He continues to feel poorly and feels as though he is continuing to deteriorate. He has become extremely depressed in his not seen any end in sight. Although he has remained out of the hospital for about a year, he spends the majority of time in medical settings with thoracentesis, paracentesis, and on inotropic infusions. He gets significantly dyspneic walking short distances and normal activities of daily living are extremely difficult. He has [place] heart Association class three congestive heart failure. He has been on maximally tolerated guideline directed therapy. He is not on an SHIVA or an ARB due to hypotension. He is not on an MRA for the same reason. He has previous intolerance to SGLT2 inhibitors. Past Medical History: 1. Chronic systolic heart failure 2. Severe ischemic cardiomyopathy 3. Coronary artery disease, status post prior CABG 4. Permanent atrial fibrillation 5. Complete heart block secondary to intentional AV node ablation 6. Recurrent bilateral pleural effusions 7. Recurrent ascites 8. Moderate mitral regurgitation 9. History of recurrent nonsustained VT 10. Type 2 diabetes 11. Hyperlipidemia 12. History of lower extremity cellulitis due to fluid retention 13. Persistent hypotension, not in candidate for ARB/SHIVA inhibitors 14. Intolerance to SGLT2 inhibitors 15. Inability to anticoagulate for permanent atrial fibrillation due to frequent invasive procedures. Past Surgical History: [ ] Family History: [ ] Social History: [ ] Habits: [Never] smoker. [Denies] alcohol consumption. [Denies] illicit drug use Home Meds: See list Review of Systems: As extensively noted above Physical Examination: GENERAL: Depressed appearing, in no acute physical distress NECK: [Mild JVD at 45 LUNGS: Scant rales, decrease breath sounds at the bases HEART: Regular with no murmurs ABD: Benign EXT: 3+ edema and chronic skin changes bilaterally Vital Signs (last 8hr) Date Time Temp Pulse Resp B/P (MAP) Pulse Ox O2 Delivery O2 Flow Rate FiO2 10/30/24 18:05 98.2 71 14 115/69 97 Room Air* 0 21 10/30/24 15:04 71 14 106/82 97 Room Air* 0 21 10/30/24 14:34 98.2 87 16 136/92 97 Room Air Laboratory: [ ] Hematology Labs: Test 10/30/24 14:54 Range/Units White Blood Count 7.0 4.8-10.8 K/uL Red Blood Count 5.11 4.50-6.20 MIL/uL Hemoglobin 15.6 14.0-18.0 g/dL Hematocrit 47.2 42-54 % Mean Corpuscular Volume 92.4 79-99 fL Mean Corpuscular Hemoglobin 30.5 27.0-33.0 pg Mean Corpuscular Hemoglobin Concent 33.1 32.0-36.0 g/dL Red Cell Distribution Width 15.8 H 11.0-15.5 % Platelet Count 190 130-400 K/uL Mean Platelet Volume 9.3 7.5-10.5 fL Segmented Neutrophils % 78 H 40-70 % Lymphocytes % (Manual) 9 L 22-44 % Monocytes % (Manual) 10 H 2-9 % Eosinophils % (Manual) 3 1-6 % Nucleated Red Blood Cells 0.0 0.0-0.19 % Differential Comment MANUAL DIFFERENTIAL White Cell Morphology Comment REACTIVE LYMPHS 1+ Platelet Morphology Comment ADEQUATE Red Blood Cell Morphology NORMAL Chemistry Labs: Test 10/30/24 14:54 Range/Units Sodium Level 136 136-145 mmol/L Potassium Level 3.9 3.5-5.1 mmol/L Chloride Level 102 101-111 mmol/L Carbon Dioxide Level 25 21-32 mmol/L Blood Urea Nitrogen 29 H 7-18 mg/dL Creatinine 1.3 0.5-1.3 mg/dL Glomerular Filtration Rate Calc 62 >90 mL/min Random Glucose 145 H 70-105 mg/dL Total Calcium 8.6 8.5-10.1 mg/dL Total Bilirubin 1.3 H 0.2-1.0 mg/dL Aspartate Amino Transf (AST/SGOT) 23 10-37 U/L Alanine Aminotransferase (ALT/SGPT) 23 12-78 U/L Alkaline Phosphatase 203 H 50-136 U/L Troponin I High Sensitivity 32 4-75 ng/L B-Type Natriuretic Peptide 620 H 0-100 pg/mL Total Protein 7.0 6.0-8.3 g/dL Albumin 3.0 L 3.5-5.0 g/dL Coagulation Labs: Test 10/30/24 14:54 Range/Units Prothrombin Time 11.9 H 9.6-11.6 SEC Prothromb Time International Ratio 1.14 0.85-1.15 Activated Partial Thromboplast Time 26.8 26.3-35.5 SEC Diagnostics / Radiology: [Copy/Paste Echos/Imaging Report here] Assessment: 1. Acute on chronic right and left congestive heart failure 2. Permanent atrial fibrillation 3. Complete heart block due to intentional AV node ablation 4. Bilateral pleural effusions 5. Ascites 6. Bilateral lower extremity edema 7. Coronary artery disease, stable 8. Ischemic cardiomyopathy Plan: 1. We will initiate intravenous diuresis 2. Dr. Ky Valdez, the patient's user experience developer, we will assess his pleural effusions in the potential need for further thoracentesis at this point 3. I just discussed with the patient in his at length the procedure of implanting a CCM device (Cardiac Contractility Modulation Therapy). The majority of patients receiving this device can realize a vast improvement in her heart failure symptoms, reduce hospitalizations, and reduce or eliminate the need for chronic inotropic infusions. In addition, it is also effective in treating right heart failure. The patient is have considered this and agreed to proceed. The procedure will be scheduled for tomorrow morning. Thank you very much for this consultation. NICOLETTE SWAIN MD Oct 30, 2024 19:34
[2024-10-30 20:00] VITALS: BP 129/83; PULSE 94; RESP 18; TEMP 99
[2024-10-30] MEDS ORDERED: FORMOTEROL IH PRN (20:00)
[2024-10-30] MEDS ORDERED: BUDESONIDE IH PRN (20:00)
[2024-10-30] MEDS ORDERED: NITROGLYCERIN 0.4 MG SL TAB SL PRN (20:00)
[2024-10-30 21:00] VITALS: O2SAT 99
[2024-10-30] MEDS: metOPROLol sucCINATE 50 MG TAB.SR.24H PO SCH (21:48)
--- NOTE | 2024-10-30 23:23 | HP ---
[facility] HISTORY & PHYSICAL Date Patient Seen: Oct 30, 2024 Time of Visit: 23:23 Supervising Physician: Dr. Gaby Le Primary Care Physician: Dr Suazo Outpatient Specialists: [ ] Inpatient Consults: Dr. Lopez PROBLEM LIST: Acute respiratory insufficiency, POA Recurrent pleural effusion with multiple thoracentesis, recently underwent right thoracentesis last week with 1.1 L drain Recurrent ascites, requiring paracentesis Congestive heart failure, status post biventricular AICD placement POA Atrial fibrillation, s/p cardiac ablation Hypertension, POA DM type 2, POA Hyperlipidemia, POA History of CAD s/p three-vessel CABG 2016, previous [place] with stent placement History of remote smoking and alcohol intake PLAN: Admit to PCCU Continue cardiac monitoring VS per unit protocol NPO after midnight Consult Dr. Lopez Keep SBP less than 160 P.r.n. hydralazine and labetalol ISS and fingerstick per unit protocol Keep serum glucose less than 150 Replete electrolyte accordingly Daily weight Bilateral SCDs DuoNeb as needed Incentive spirometry Deep breathing exercises Up ad barbra O2 therapy as needed Keep head of bed above 30 Facilitate ordered imaging and lab work CBC, CMP, magnesium level daily HPI: 65-year-old male with past medical history of hypertension, hyperlipidemia, DM type 2, CHF, CAD as s/p three-vessel CABG and multiple stents, previous myocardial infarction with stent placements, recurrent pleural effusions requiring weekly thoracentesis, recurrent ascites requiring paracentesis who presented to [facility] as a direct admit from Dr. Lim's clinic here for scheduled cardiac contractility modulation device placement. Patient was seen and examined in his room with present at bedside. Apparently patient has been having worsening symptoms of congestive heart failure particularly water retention and recurrent pleural effusion. At present patient is currently hemodynamically stable, on room air with appropriate oxygen saturation, denies any headache, chest pain, fever, cough, abdominal pain, or flu-like symptoms. But patient complains of periodic dyspnea worse with exertion and complains of bilateral lower extremity edema. Patient is a former smoker and former drinker, denies any illicit drug use. PAST MEDICAL HX: see above PAST SURGICAL HX: See HPI SOCIAL HISTORY: See HPI Coded Allergies: No Known Drug Allergies (Unverified Allergy, Unknown, 03/29/23) REVIEW OF SYSTEMS: 12 point ROS reviewed with patient. Pertinent positives mentioned above. Otherwise negative. PHYSICAL EXAM: GENERAL: alert, weak, awake oriented x 3 HEENT: EOMI, Sclera non icteric, moist mucosa NECK: Supple, no JVD, trachea midline LUNGS: Diminished bibasilar area HEART: Regular rate and rhythm. Normal S1 and S2, without murmurs ABD: Abdomen soft, nontender. Bowel sounds present EXT: 2+ pitting edema on lower extremities NEURO: Alert and oriented to person, follows commands Vital Signs (last 8hr) Date Time Temp Pulse Resp B/P (MAP) Pulse Ox O2 Delivery O2 Flow Rate FiO2 10/30/24 20:00 99.0 94 18 129/83 99 Room Air 10/30/24 18:05 98.2 71 14 115/69 97 Room Air* 0 21 LABS: Hematology Labs: Test 10/30/24 14:54 Range/Units White Blood Count 7.0 4.8-10.8 K/uL Red Blood Count 5.11 4.50-6.20 MIL/uL Hemoglobin 15.6 14.0-18.0 g/dL Hematocrit 47.2 42-54 % Mean Corpuscular Volume 92.4 79-99 fL Mean Corpuscular Hemoglobin 30.5 27.0-33.0 pg Mean Corpuscular Hemoglobin Concent 33.1 32.0-36.0 g/dL Red Cell Distribution Width 15.8 H 11.0-15.5 % Platelet Count 190 130-400 K/uL Mean Platelet Volume 9.3 7.5-10.5 fL Segmented Neutrophils % 78 H 40-70 % Lymphocytes % (Manual) 9 L 22-44 % Monocytes % (Manual) 10 H 2-9 % Eosinophils % (Manual) 3 1-6 % Nucleated Red Blood Cells 0.0 0.0-0.19 % Differential Comment MANUAL DIFFERENTIAL White Cell Morphology Comment REACTIVE LYMPHS 1+ Platelet Morphology Comment ADEQUATE Red Blood Cell Morphology NORMAL Chemistry Labs: Test 10/30/24 14:54 Range/Units Sodium Level 136 136-145 mmol/L Potassium Level 3.9 3.5-5.1 mmol/L Chloride Level 102 101-111 mmol/L Carbon Dioxide Level 25 21-32 mmol/L Blood Urea Nitrogen 29 H 7-18 mg/dL Creatinine 1.3 0.5-1.3 mg/dL Glomerular Filtration Rate Calc 62 >90 mL/min Random Glucose 145 H 70-105 mg/dL Total Calcium 8.6 8.5-10.1 mg/dL Total Bilirubin 1.3 H 0.2-1.0 mg/dL Aspartate Amino Transf (AST/SGOT) 23 10-37 U/L Alanine Aminotransferase (ALT/SGPT) 23 12-78 U/L Alkaline Phosphatase 203 H 50-136 U/L Troponin I High Sensitivity 32 4-75 ng/L B-Type Natriuretic Peptide 620 H 0-100 pg/mL Total Protein 7.0 6.0-8.3 g/dL Albumin 3.0 L 3.5-5.0 g/dL Coagulation Labs: Test 10/30/24 14:54 Range/Units Prothrombin Time 11.9 H 9.6-11.6 SEC Prothromb Time International Ratio 1.14 0.85-1.15 Activated Partial Thromboplast Time 26.8 26.3-35.5 SEC DIAGNOSTICS / RADIOLOGY RESULTS: [ ] PLAN NEURO: Minimize central acting medications as possible. Maintain fall precautions, adequate lighting during the day PULMONARY: Supplemental 02 as needed. Maintain aspiration precautions at all times CARDIOVASCULAR: Follow hemodynamics. Vital signs per facility protocol GI & NUTRITION: Continue with nutritional support. Continue stool softeners and laxatives as needed. KIDNEYS & ELECTROLYTES: Strict monitoring of intake, output and overall fluid balance. Avoid nephrotoxic medications to the extent possible. Medications to be dosed according to renal function. Monitor electrolytes and replace as needed ENDOCRINE: Maintain blood glucose between 100-180 at all times. Hypoglycemia protocol in place INFECTIOUS DISEASE: Trend temperature, WBC and procalcitonin level Follow cultures, deescalate antibiotics as soon as possible. Panculture if new onset fever ONCOLOGY/HEMATOLOGY/COAGULATION: Monitor for s/s of bleeding Monitor hemoglobin, coagulation studies as needed SKIN: Pressure ulcer prevention per facility protocol Specialty mattress ORTHO/REHAB: Continue PT/OT Prophylaxis: Continue GI and DVT prophylaxis Code Status: Full Resuscitation Disposition: TBD Supervising physician: MELIZA Ferguson SYSTEM SAFETY ENGINEER Oct 30, 2024 23:23
[2024-10-31] VITALS (20 sets, daily range): BP systolic 98–127; BP diastolic 54–82; PULSE 64–85; RESP 14–20; TEMP 97.9–98.9; O2SAT 97–98
[2024-10-31] MEDS ORDERED: FENTanyl CITRate PF 50 MCG/1 ML 2ML VIAL ONE ×2 (07:07→07:34)
[2024-10-31] MEDS ORDERED: rocuRONium bROMide 10MG/1ML 5ML VL ONE (07:07)
[2024-10-31] MEDS ORDERED: proPOFol 10 MG/ML 20ML VIAL IV ONE ×2 (07:07→09:45)
[2024-10-31] MEDS ORDERED: MIDAZOLAM HCL 1 MG/ML 2ML VIAL ONE (07:07)
[2024-10-31] MEDS ORDERED: LIDOCAINE HCL 1% MDV 50ML VIAL ONE (07:38)
[2024-10-31] MEDS ORDERED: ceFAZolin SODIUM 1 GM VIAL ONE (07:39)
[2024-10-31] MEDS ORDERED: BUPIvacaine/PF 0.25% 30ML VIAL IJ ONE (07:39)
[2024-10-31] MEDS ORDERED: SODIUM BICARB 50MEQ 50ML VIAL 50 ML ONE (07:39)
[2024-10-31] MEDS ORDERED: IOHEXOL-350 50ML VIAL IV ONE (07:39)
[2024-10-31] MEDS ORDERED: VANCOMYCIN 1G/250ML KIT 500 ML IV ONE (07:41)
[2024-10-31] MEDS: MAGNESIUM OXIDE 400 MG TABLET PO SCH (08:00)
[2024-10-31] MEDS ORDERED: phenylEPHRINE HCL 10 MG/ML 1ML VIAL IV ONE (08:04)
[2024-10-31] MEDS ORDERED: ePHEDrine SULFate 50 MG/ML AMPULE ONE (09:02)
[2024-10-31 09:11] LABS: ABG BASE EXCESS -3.7 mmol/L (-2.0-3.0); ABG HCO3 19.9 mmol/L (21.0-28.0); ABG OXYGEN SATURATION 99.8 % (94.0-98.0); ABG PCO2 33 mmHg (35-48); ABG PH 7.404 (7.350-7.450); CARBON MONOXIDE 1.1 % (0.5-1.5); DEVICE COMMENT ALINE; HHb 0.2; PO2, ARTERIAL BG 417.8 mmHg (83.0-108.0); VENT MODE, BG AC (ROOM AIR)
[2024-10-31] MEDS ORDERED: GLYCOPYRROLATE 0.2 MG/ML 5 ML VIAL ONE (09:42)
[2024-10-31] MEDS ORDERED: NEOSTIGMINE METHYLSULFATE 1MG/ML IV ONE (09:42)
[2024-10-31] MEDS ORDERED: furoSEMIDE 20MG VIAL ONE (10:11)
[2024-10-31] MEDS ORDERED: ondanSETRON 4MG INJ ONE (10:42)
[2024-10-31] MEDS ORDERED: acetaMINOPHEN WITH coDEINE 1 TAB TAB PO PRN ×2 (11:00→13:11)
[2024-10-31] MEDS: acetaMINOPHEN 500 MG TABLET PO PRN (13:09)
--- NOTE | 2024-10-31 16:57 | HMCIMG ---
CHEST 1VW REASON: POST DEVICE PLACEMENT COMPARISON: 10/30/2024 FINDINGS: There is moderate cardiomegaly, unchanged. Right-sided pacemaker has been placed. There is no pneumothorax. There is a moderate right and a small left pleural effusion, unchanged. IMPRESSION: 1. Right-sided pacemaker placement without evidence of pneumothorax.
[2024-10-31] MEDS ORDERED: traMADol HCL 50 MG TABLET PO SCH (19:00)
[2024-10-31] MEDS ORDERED: traMADol HCL 50 MG TABLET PO PRN (19:30)
[2024-10-31] MEDS: TORSEMIDE 20 MG TAB PO SCH (21:27)
[2024-11-01] VITALS: BP 110/62; PULSE 70; RESP 18; TEMP 98.2
--- NOTE | 2024-11-01 00:31 | PN ---
[facility] PROGRESS NOTE Date Patient Seen: Oct 31, 2024 Time of Visit: 14:00 Supervising Physician: [AJ BRENNER MD ] Primary Care Physician: Dr Suazo Outpatient Specialists: [ ] Inpatient Consults: Dr. Lopez PROBLEM LIST: Acute respiratory insufficiency, POA Recurrent pleural effusion with multiple thoracentesis, recently underwent right thoracentesis last week with 1.1 L drain Recurrent ascites, requiring paracentesis Congestive heart failure, status post biventricular AICD placement POA S/P CARDIAC CONTRACTILITY MODULATION DEVICE PLACEMENT ON 10/31/[address] Swain Atrial fibrillation, s/p cardiac ablation Hypertension, POA DM type 2, POA Hyperlipidemia, POA History of CAD s/p three-vessel CABG 2017, previous [place] with stent placement History of remote smoking and alcohol intake INTERVAL HISTORY: Pt is awake alert and oriented x 3, No apparent distress. Wearing arm sling and rt chest wall dressing clean dry and intact. Pending CXR reading but no obvious pneumothorax post CARDIAC CONTRACTILITY MODULATION DEVICE PLACEMENT per DR Swain today. He is hemodynamically stable and there are no labs today. we will repeat in am and replace electrolytes as needed. REVIEW OF SYSTEMS: Const: [no fever, fatigue, or weight changes] Eyes:[ no recent vision problems] ENT: [No congestion, ear pain, or sore throat] C/V: [no chest pain, palpitations or edema] Resp: [No cough, congestion, wheezing , or Shortness of breath] GI: [No abdominal pain, nausea, vomiting, constipation, or diarrhea] : [No incontinence of or dyuria] M/S: [No joint or pain swelling] Skin: [pain to rt chest wall recent surgical intervention, dressing clean dry and intact. Neuro: [no headache, focal numbness, or weakness, dizziness or seizures] Psych: [no depression or anxiety] Heme: [no abnormal bruising or bleeding] Lymph: [no swollen glands] PHYSICAL EXAM: GENERAL: alert, weak, awake oriented x 3 HEENT: EOMI, Sclera non icteric, moist mucosa NECK: Supple, no JVD, trachea midline LUNGS: Diminished bibasilar area HEART: Regular rate and rhythm. Normal S1 and S2, without murmurs ABD: Abdomen soft, nontender. Bowel sounds present EXT: 1+ pitting edema on lower extremities NEURO: Alert and oriented to person, follows commands Vital Signs (last 8hr) Date Time Temp Pulse Resp B/P (MAP) Pulse Ox O2 Delivery O2 Flow Rate FiO2 10/31/24 20:00 98.4 65 18 110/54 97 Room Air LABS: Hematology Labs: Test 10/30/24 14:54 Range/Units White Blood Count 7.0 4.8-10.8 K/uL Red Blood Count 5.11 4.50-6.20 MIL/uL Hemoglobin 15.6 14.0-18.0 g/dL Hematocrit 47.2 42-54 % Mean Corpuscular Volume 92.4 79-99 fL Mean Corpuscular Hemoglobin 30.5 27.0-33.0 pg Mean Corpuscular Hemoglobin Concent 33.1 32.0-36.0 g/dL Red Cell Distribution Width 15.8 H 11.0-15.5 % Platelet Count 190 130-400 K/uL Mean Platelet Volume 9.3 7.5-10.5 fL Segmented Neutrophils % 78 H 40-70 % Lymphocytes % (Manual) 9 L 22-44 % Monocytes % (Manual) 10 H 2-9 % Eosinophils % (Manual) 3 1-6 % Nucleated Red Blood Cells 0.0 0.0-0.19 % Differential Comment MANUAL DIFFERENTIAL White Cell Morphology Comment REACTIVE LYMPHS 1+ Platelet Morphology Comment ADEQUATE Red Blood Cell Morphology NORMAL Chemistry Labs: Test 10/31/24 15:00 10/31/24 11:14 10/30/24 14:54 Range/Units Magnesium Level 1.70 L 1.80-2.40 mg/dL Whole Blood Glucose 110 70-110 MG/DL Sodium Level 136 136-145 mmol/L Potassium Level 3.9 3.5-5.1 mmol/L Chloride Level 102 101-111 mmol/L Carbon Dioxide Level 25 21-32 mmol/L Blood Urea Nitrogen 29 H 7-18 mg/dL Creatinine 1.3 0.5-1.3 mg/dL Glomerular Filtration Rate Calc 62 >90 mL/min Random Glucose 145 H 70-105 mg/dL Total Calcium 8.6 8.5-10.1 mg/dL Total Bilirubin 1.3 H 0.2-1.0 mg/dL Aspartate Amino Transf (AST/SGOT) 23 10-37 U/L Alanine Aminotransferase (ALT/SGPT) 23 12-78 U/L Alkaline Phosphatase 203 H 50-136 U/L Troponin I High Sensitivity 32 4-75 ng/L B-Type Natriuretic Peptide 620 H 0-100 pg/mL Total Protein 7.0 6.0-8.3 g/dL Albumin 3.0 L 3.5-5.0 g/dL Coagulation Labs: Test 10/30/24 14:54 Range/Units Prothrombin Time 11.9 H 9.6-11.6 SEC Prothromb Time International Ratio 1.14 0.85-1.15 Activated Partial Thromboplast Time 26.8 26.3-35.5 SEC DIAGNOSTICS / RADIOLOGY RESULTS: [Signed PATIENT: MARY STEWART JR MR#: [id number] : 1960 SEX: M AGE: 64 LOCATION: [facility] ORDER 36 STATUS: ADM IN REPORT#: [id number] SERVICE 36 REASON: POST DEVICE PLACEMENT ORDERING PHYSICIAN: SOHAM ARREOLA PROCEDURE: CXR1VW - CHEST 1VW CHEST 1VW REASON: POST DEVICE PLACEMENT COMPARISON: 10/30/2024 FINDINGS: There is moderate cardiomegaly, unchanged. Right-sided pacemaker has been placed. There is no pneumothorax. There is a moderate right and a small left pleural effusion, unchanged. IMPRESSION: 1. Right-sided pacemaker placement without evidence of pneumothorax. DICTATED BY: CHINYERE SAENZ MD DATE: 10/31/241652 ELECTRONICALLY SIGNED BY: CHINYERE SAENZ MD DATE: 10/31/241656 ] PLAN CONTINUE IN PCCU Continue cardiac monitoring VS per unit protocol FOLLOW DR SWAIN RECClaire Keep SBP less than 160 P.r.n. hydralazine and labetalol ISS and fingerstick per unit protocol Keep serum glucose less than 150 Replete electrolyte accordingly Daily weight Bilateral SCDs DuoNeb as needed Incentive spirometry Deep breathing exercises Up ad barbra O2 therapy as needed Keep head of bed above 30 Facilitate ordered imaging and lab work CBC, CMP, magnesium level daily CXR TO RULE OUT PNEUMOTHORAX POST CARDIAC CONTRACTILITY MODULATION DEVICE PLACEMENT LABS IN AM AND 6 MIN WALK NEURO: Minimize central acting medications as possible. Maintain fall precautions, adequate lighting during the day PULMONARY: Supplemental 02 as needed. Maintain aspiration precautions at all times CARDIOVASCULAR: Follow hemodynamics. Vital signs per facility protocol GI & NUTRITION: Continue with nutritional support. Continue stool softeners and laxatives as needed. KIDNEYS & ELECTROLYTES: Strict monitoring of intake, output and overall fluid balance. Avoid nephrotoxic medications to the extent possible. Medications to be dosed according to renal function. Monitor electrolytes and replace as needed ENDOCRINE: Maintain blood glucose between 100-180 at all times. Hypoglycemia protocol in place INFECTIOUS DISEASE: Trend temperature, WBC and procalcitonin level Follow cultures, deescalate antibiotics as soon as possible. Panculture if new onset fever ONCOLOGY/HEMATOLOGY/COAGULATION: Monitor for s/s of bleeding Monitor hemoglobin, coagulation studies as needed SKIN: Pressure ulcer prevention per facility protocol Specialty mattress ORTHO/REHAB: Continue PT/OT Prophylaxis: Continue GI and DVT prophylaxis Code Status: Full Resuscitation Disposition: SOHAM FRANCO Nov 01, 2024 00:31
[2024-11-01 04:00] VITALS: BP 96/70; PULSE 66; RESP 18; TEMP 97.5
[2024-11-01 04:03] LABS: BASOPHILS # (AUTO) 0.06 K/uL (0.00-0.20); BASOPHILS % (AUTO) 0.7 % (0.0-5.0); EOSINOPHILS # (AUTO) 0.15 K/uL (0.00-0.70); EOSINOPHILS % (AUTO) 1.9 % (0.0-8.0); HEMATOCRIT 43.3 % (42-54); IMMATURE GRANULOCYTE ABSOLUTE 0.04 K/uL (0-1); LYMPHOCYTES # (AUTO) 0.8 K/uL (1.0-4.8); LYMPHOCYTES % (AUTO) 9.3 % (21.0-51.0); MEAN CORPUSCULAR HEMOGLOBIN 30.8 pg (27.0-33.0); MEAN CORPUSCULAR HGB CONC 32.8 g/dL (32.0-36.0); MEAN CORPUSCULAR VOLUME 93.9 fL (79-99); MONOCYTES # (AUTO) 0.7 K/uL (0.1-1.0); MONOCYTES % (AUTO) 8.6 % (3.0-13.0); NEUTROPHILS # (AUTO) 6.4 K/uL (1.8-7.7); PLATELET COUNT (AUTO) 176 K/uL (130-400); RED BLOOD CELL COUNT(AUTO) 4.61 MIL/uL (4.50-6.20); RED CELL DISTRIBUTION WIDTH 15.9 % (11.0-15.5); WHITE BLOOD COUNT (AUTO) 8.1 K/uL (4.8-10.8)
[2024-11-01 04:23] LABS: ALBUMIN 2.9 g/dL (3.5-5.0); BILIRUBIN,TOTAL 1.5 mg/dL (0.2-1.0); CREATININE 1.5 mg/dL (0.5-1.3); MAGNESIUM 1.7 mg/dL (1.80-2.40); POTASSIUM 3.9 mmol/L (3.5-5.1); TOTAL PROTEIN, SERUM 6.6 g/dL (6.0-8.3)
[2024-11-01] MEDS: MAGNESIUM 2GM PREMIX 50ML 50 ML IV PRN (06:01)
--- NOTE | 2024-11-01 07:52 | DS ---
[facility] DISCHARGE SUMMARY Date Patient Seen: Nov 01, 2024 Time of Visit: 07:51 Supervising Physician: [ ELVER BALBUENA MD ] Primary Care Physician: Dr Suazo Outpatient Specialists: [ ] Inpatient Consults: Dr. Lopez PROBLEM LIST: Acute respiratory insufficiency, POA, RESOLVED Recurrent pleural effusion with multiple thoracentesis, recently underwent right thoracentesis last week with 1.1 L drain Recurrent ascites, requiring paracentesis Congestive heart failure, status post biventricular AICD placement POA S/P CARDIAC CONTRACTILITY MODULATION DEVICE PLACEMENT ON 10/31/[address] Lim Atrial fibrillation, s/p cardiac ablation Hypertension, POA DM type 2, POA Hyperlipidemia, POA History of CAD s/p three-vessel CABG 2016, previous [place] with stent placement History of remote smoking and alcohol intake HOSPITAL COURSE: HPI The patient is a 64-year-old male with significant cardiac and metabolic comorbidities, including congestive heart failure with reduced ejection fraction, coronary artery disease with prior CABG and multiple stents, and rec urrent ascites requiring weekly paracentesis. He also has a history of myocardial infarction, diabetes, hypertension, and hyperlipidemia. He presented to [facility] [place] on 10/30/2024 as a direct admission by cardiology Dr Lim, with acute respiratory insufficiency, likely multifactorial in the setting of volume overload. The condition was managed with supportive measures and improved over the course of hospitalization. By the time of discharge, the patients respiratory status had fully resolved, and he remained stable on room air. On 10/31/2024, the patient underwent successful placement of a cardiac contractility modulation (CCM) device. The procedure was well-tolerated without complications. Postoperatively, the patient remained hemodynamically stable, and laboratory values were unremarkable. Chest X-ray showed no pneumothorax. His surgical dressing remained clean, dry, and intact. He was provided a right arm sling for protection and instructed on postoperative arm restrictions. Cardiology cleared the patient for discharge with outpatient follow-up in one week. Discharge Condition: Stable. Breathing comfortably on room air. Tolerating oral intake. Ambulating. No acute distress. CHRONIC PROBLEMS: continue previous management per PCP unless otherwise indicated INFORMATION SYSTEMS AUDITOR FINDINGS/RECOMMENDATIONS: [ ] Discharge Instructions: Maintain right arm in sling for 57 days. Avoid lifting >10 lbs or raising the arm above shoulder level. Monitor for signs of infection at the insertion site (redness, swelling, drainage, fever). Continue home medications unless instructed otherwise. Follow up with Cardiology in 1 week for device evaluation. Seek immediate medical attention for chest pain, shortness of breath, fever, or wound concerns. PROCEDURES: as mentioned above Pt hemodynamically stable and afebrile at time of discharge. PCP notified of patients admission, hospital course and discharge. Continued Medications: Acetaminophen (Tylenol) 500 Mg Tab 500 MG PO TID PRN for PAIN, TAB Aspirin (Aspirin EC) 81 Mg Tablet.dr 81 MG PO DAILY, TAB Budesonide/Formoterol Fumarate (Symbicort 80-4.5 Mcg Inhaler) 80 Mcg-4.5 Mcg/Actuation Inhr 2 PUFF IH BID PRN for SHORTNESS OF BREATH, INH Lactulose (Lactulose) 10 Gram/15 Ml Solution 10 GM PO HS PRN for CONSTIPATION, ML Magnesium Oxide (Magnesium) 400 Mg Magnesium Capsule 400 MG PO DAILYBKFST, CAP Metoprolol Succinate (Metoprolol Succinate) 50 Mg Tab.er.24h 50 MG PO BID, TAB Nitroglycerin (Nitroglycerin) 0.4 Mg Tab.subl 0.4 MG SL Q5MIN PRN for CHEST PAIN, TAB.SL Torsemide (Torsemide) 20 Mg Tablet 20 MG PO BID, TAB Discontinued Medications: [Potassium Chloride] () Unknown Dose PO BID PHYSICAL EXAM: GENERAL: alert, weak, awake oriented x 3 HEENT: EOMI, Sclera non icteric, moist mucosa NECK: Supple, no JVD, trachea midline LUNGS: clear breath sounds bilaterally HEART: Regular rate and rhythm. Normal S1 and S2, without murmurs,rt chest wall dressing clean dry and intact, rt arm sling in place. ABD: Abdomen soft, nontender. Bowel sounds present EXT: decreased 1+ pitting edema on lower extremities NEURO: Alert and oriented to person, follows commands FOLLOW-UP: Follow-up with PCP in 2-3 days Follow up with nursery nurse DR Lim in 1 week. RECOMMENDATIONS: See Discharge Instructions This case was seen and discussed with my supervising physician. More than 30 minutes spent on discharge process, including evaluation of the patient, discussion with nursing staff, medication reconciliation and follow-up appointments ATTESTATION BY PHYSICIAN I reviewed the documentation, medical decision making, and treatment plan as noted by the mid-level provider above. I agree with the findings and plan of care. Elver Balbuena MD, [facility] Nov 01, 2024 07:51
[2024-11-01 08:00] VITALS: BP 102/68; PULSE 60; RESP 17; TEMP 97.7; O2SAT 97
--- NOTE | 2024-11-01 09:04 | HMCIMG ---
Exam Type: CHEST 1VW Clinical Information: s/p pacemaker Comparison: None Findings: Pulmonary pattern is as before. No worrisome interval changes have taken place. Impression: Stable exam.
[2024-11-01] MEDS: LACTULOSE 20 GM/30 ML UDCUP PO PRN (10:50)
[2024-11-01] MEDS ORDERED: TRAM50TA4 PO (10:53)
--- NOTE | 2024-11-01 13:15 | NUR ---
DISCHARGE INSTRUCTIONS DISCHARGE INSTRUCTIONS WERE GIVEN TO THIS PATIENT AND AT BEDSIDE. ALL QUESTIONS WERE ANSWERED AND EDUCATION PROVIDED ON NEW MEDICATION/ SITE CARE OF CCM DEVICE. ALL BELONGINGS WERE TAKEN WITH THE PATIENT. TELE PACK WAS REMOVED AND RETURNED. PIV TO LEFT HAND WAS REMOVED WITH CATHETER INTACT. DRY DRESSING WAS APPLIED ONCE BLEEDING STOPPED. PATIENT DENIES ANY PAIN NOR HAS ANY SOB. PATIENT WAS TAKEN DOWN TO PRIVATE VEHICLE VIA WHEEL CHAIR.
--- NOTE | 2024-11-02 14:42 | NUR ---
Transitional Phone Call Spoke to patient, [place] [facility] [place]. [facility] has new prescription and home medications and is taking as instructed; no questions or concerns at this time. [facility] has a follow up appointment with PCP - Dr. Darius Suazo on at 0940; [facility] the follow up appointmetn with cardiology - Dr. Lim is pending states the office should be calling; this CM call cardiology - Dr. Lim office and left a message for Nita to schedule the appointment with the patient; notified patient to expect a call. No further questions or concerns at this time. Addendum: 11/05/24 at 0943 by VIVIANE CROCKETT RN CM Follow up... This CM called cardiology - Dr. Lim' s office, spoke to Ignacio states the office will make the appointment with the patient due to coordination of the CCM device billing customer service representative to be present during follow up appointment; notified patient via voice mail.
--- NOTE | 2024-11-02 15:25 | PRN ---
Procedure Note INDICATION FOR PROCEDURE: Severe chronic systolic and diastolic heart failure PROCEDURE: Implantation of a Cardiac Contractility Modulation (CCM) Device DATE OF PROCEDURE: 10/31/2024 SAT INSTRUCTOR: Dr. Chi Swain PROCEDURE NOTE: The patient was brought to the cardiac catheterization lab in a fasting state. General anesthesia was provided by the anesthesia service. The patient's existing BOAT LOADER HELPER-D was interrogated and reprogrammed. Local anesthesia was achieved with lidocaine and Marcaine. An incision was made inferior to the right clavicle and using electrosurgery and blunt dissection a pocket was created in the prepectoral plane. Access was achieved to the right axillary vein x2. Using peel-away sheaths, two 53 cm Biotronik pacing leads were introduced into the heart. Using a three-dimensional curved stylet, both leads were implanted in the septum. An inter-lead distance of at least 2 cm was ensured. Pacing and sensing thresholds as well as lead impedances were evaluated on both leads. The leads were then secured with 0-Ethibond via the suture sleeves. The device was connected and placed together with the leads into the pocket. The pocket was irrigated with an antibiotic containing solution. The subcutaneous tissues were closed in two layers with 2-0 Vicryl and the skin was closed with 4-0 Vicryl in a subcuticular stitch. Steri-Strips and a sterile dressing were applied. Via the device, it is function was again evaluated and programmed appropriately. Sensing was adjusted and the device was programmed for six sessions daily. The patient was then returned to his room in stable condition. FINDINGS: [] IMPRESSION: Successful implantation of CCM device PLAN: 1. The patient will be re-evaluated tomorrow 2. Discharge home once his heart failure is compensated. 3. Follow up in the office in 7-10 days. CHI SWAIN MD Nov 02, 2024 15:25
== END 2024-11-01 13:44 | disposition home or self-care (01) | DRG 177 ==
LOC: EDH 14:30 → EDHIP 14:31 → 2AH 19:55
PROVIDERS: ADMIT Internal Medicine Critical Care Medicine; ATTEND Internal Medicine Critical Care Medicine
PROC: 0JH Subcutaneous Tissue and Fascia, Insertion (ICD-10-PCS; principal; 2024-10-31)
PROC: 02H63MZ Insertion of Cardiac Lead into Right Atrium, Percutaneous Approach (ICD-10-PCS; 2024-10-31)
PROC: 02HK3MZ Insertion of Cardiac Lead into Right Ventricle, Percutaneous Approach (ICD-10-PCS; 2024-10-31)
DX: I11.0 Hypertensive heart disease with heart failure (principal); I44.2 Atrioventricular block, complete; R18.8 Other ascites; I25.2 Old myocardial infarction; E11.9 Type 2 diabetes mellitus without complications; E78.5 Hyperlipidemia, unspecified; R06.89 Other abnormalities of breathing; I25.10 Atherosclerotic heart disease of native coronary artery without angina pectoris; I48.21 Permanent atrial fibrillation; I50.43 Acute on chronic combined systolic (congestive) and diastolic (congestive) heart failure; I25.5 Ischemic cardiomyopathy; Z95.810 Presence of automatic (implantable) cardiac defibrillator; Z95.5 Presence of coronary angioplasty implant and graft; Z95.1 Presence of aortocoronary bypass graft; Z87.891 Personal history of nicotine dependence; Z79.51 Long term (current) use of inhaled steroids
CPT/HCPCS: 0408T; 36415; 71045; 80053; 82435; 82803; 82947; 82948; 83605; 83735; 83880; 84132; 84295; 84484; 85018; 85025; 85610; 85730; 93005; 99285; G0378; J0690; J1940; J2250; J2371; J2405; J2704; J2710; J3010; J3370; J3475; J3490; Q9967; C1824; C1898; J0665

== ENCOUNTER 2025-05-16 20:49 | Emergency (ER) | payer MEDICAID ==
[~2025-05-16] VITALS: Ht 167.6 cm; Wt 83.9 kg
[~2025-05-16 20:49] MED LIST changes: -MILRINONE IV; -POTASSIUM CHLORIDE PO; +TRAM50TA4 PO
[2025-05-16 21:12] LABS: IMMATURE GRANULOCYTE ABSOLUTE 0.02 K/uL (0-1); NUCLEATED RED BLOOD CELLS 0.0 % (0.0-0.19); PLATELET COUNT (AUTO) 151 K/uL (130-400); RED BLOOD CELL COUNT(AUTO) 4.63 MIL/uL (4.50-6.20); RED CELL DISTRIBUTION WIDTH 15.6 % (11.0-15.5); WHITE BLOOD COUNT (AUTO) 7.3 K/uL (4.8-10.8)
[2025-05-16 21:20] LABS: CREATININE 1.1 mg/dL (0.5-1.3); GLOMERULAR FILTR. RATE CALC 75.0 mL/min (>90); GLUCOSE,RANDOM 112.0 mg/dL (70-105); SODIUM SERUM 138.0 mmol/L (136-145); UREA NITROGEN, BLOOD 24.0 mg/dL (7-18)
--- NOTE | 2025-05-16 21:38 | ERN ---
ED Note History of Present Illness Stated Complaint: CP Chief Complaint: Chest Pain Time Seen by MD: 20:59 Dictation: The patient is a 65-year-old male with a past medical history of hypertension, type 2 diabetes, hyperlipidemia, CAD, status post stent placement, CABG x3 in January 2016, CHF with reduced ejection fraction, biventricular ICD upgrade with AV node ablation on 07/08/2023 due to permanent atrial fibrillation. Patient stated that he comes to the ER today due to chest pain, cough, patient stated that he left-sided thoracentesis done today at [facility], after that he went to see his PCP due to cough, stated that he was negative for COVID, strep, flu, he received a 1 shot of penicillin. Stated he was not sure if the chest pain is due to heart worse because of been having cough x1 week. Allergies: Coded Allergies: No Known Drug Allergies (Unverified Allergy, Unknown, 03/29/23) Home Meds Active Scripts Guaifenesin (Guaifenesin) 100 Mg/5 Ml Liq, 5-10 ML PO QID for cough for 6 Days, #240 ML 0 Refills Prov:MAINE DURHAM MD 05/16/25 Prednisolone Sod Phosphate (Prednisolone Sod Phosphate) 15 Mg/5 Ml (5 Ml) Solution, 5 ML PO BID for 2 Days, #30 ML 0 Refills Prov:MAINE DURHAM MD 05/16/25 Tramadol Hcl (Tramadol HCl) 50 Mg Tablet, 50 MG PO Q6HPRN PRN for PAIN, #15 TAB 0 Refills Prov:NICOLETTE SWAIN MD 11/01/24 Reported Medications Lactulose (Lactulose) 10 Gram/15 Ml Solution, 10 GM PO HS PRN for CONSTIPATION, ML 08/01/24 Aspirin (Aspirin EC) 81 Mg Tablet.dr, 81 MG PO DAILY, TAB 08/01/24 Acetaminophen (Tylenol) 500 Mg Tab, 500 MG PO TID PRN for PAIN, TAB 12/27/23 Budesonide/Formoterol Fumarate (Symbicort 80-4.5 Mcg Inhaler) 80 Mcg-4.5 Mcg/Actuation Inhr, 2 PUFF IH BID PRN for SHORTNESS OF BREATH, INH 12/27/23 Nitroglycerin (Nitroglycerin) 0.4 Mg Tab.subl, 0.4 MG SL Q5MIN PRN for CHEST PAIN, TAB.SL 08/28/23 Magnesium Oxide (Magnesium) 400 Mg Magnesium Capsule, 400 MG PO DAILYBKFST, CAP 08/01/23 Metoprolol Succinate (Metoprolol Succinate) 50 Mg Tab.er.24h, 50 MG PO BID, TAB 07/17/23 Torsemide (Torsemide) 20 Mg Tablet, 20 MG PO BID, TAB 07/17/23 Past Medical History Past Medical History: A-Fib, CAD, CHF, COPD, Diabetes-Type II, High Cholesterol, Heart Disease, Hypertension, MT Additional Past Medical Hx: STATES CARDIAC STENTS Surgical History: CABG, Pacer/AICD, Other Surgical History Other: TWO DEFIBRILLATORS INSERTED AND CARDIAC ABLATION Social History: Negative, Lives with family Review of System Dictation NEGATIVE EXCEPT PER HPI Constitutional: Negative for fever,chills, and weight loss Eyes: Negative for injury, pain,redness, and discharge ENT: Negative for injury,pain or swelling Cardiovascular: Reports chest pain Respiratory: Reports cough Abdomen/GI: Negative for abdominal pain, nausea, vomiting, diarrhea, and constipation Back: Negative for injury and pain : Negative for injury, bleeding and discharge MS/Extremity: Negative for injury and deformity Skin: Negative for rash, and discoloration Neuro: Negative for headache, weakness, numbness, tingling, and seizure Psych: Negative for suicide ideation, homicidal ideation, and hallucinations Initial Vital Sign VS Vital Signs Date Time Temp Pulse Resp B/P (MAP) Pulse Ox O2 Delivery O2 Flow Rate FiO2 05/16/25 20:50 98.6 70 18 134/81 97 05/16/25 22:33 Room Air* 0 21 Physical Exam Dictation General: awake, alert, NAD Head/Face: Normocephalic, atraumatic Eyes: PERRL, EOMI, vision at baseline ENT: oral cavity clear, TMs clear, no signs of infection Neck: Trachea midline, supple, no nuchal rigidity Cardiovascular: RRR, normal S1/S2, No MRGs, no JVD Respiratory: Bilateral rales Abdomen: Soft , no tender Skin: Warm, dry, normal turgor, no rash MS/Extremity: Pulses equal, no cyanosis, neurovascular intact, FROM Neuro: COAx4, GCS 15, strength 5/5, CN 2-12 intact, normal cerebellar exam, normal gait, Psych: Normal behavior, mood, and affect normal Results (Laboratory/Radiology) Laboratory/Radiology Laboratory Tests Test 05/16/25 21:06 White Blood Count 7.3 K/uL (4.8-10.8) Red Blood Count 4.63 MIL/uL (4.50-6.20) Hemoglobin 14.3 g/dL (14.0-18.0) Hematocrit 45.0 % (42-54) Mean Corpuscular Volume 97.2 fL (79-99) Mean Corpuscular Hemoglobin 30.9 pg (27.0-33.0) Mean Corpuscular Hemoglobin Concent 31.8 g/dL (32.0-36.0) L Red Cell Distribution Width 15.6 % (11.0-15.5) H Platelet Count 151 K/uL (130-400) Mean Platelet Volume 9.6 fL (7.5-10.5) Immature Granulocyte % (Auto) 0.3 % (0-1) Neutrophils (%) (Auto) 76.8 % (40.0-77.0) Lymphocytes (%) (Auto) 8.6 % (21.0-51.0) L Monocytes (%) (Auto) 12.6 % (3.0-13.0) Eosinophils (%) (Auto) 1.0 % (0.0-8.0) Basophils (%) (Auto) 0.7 % (0.0-5.0) Neutrophils # (Auto) 5.6 K/uL (1.8-7.7) Lymphocytes # (Auto) 0.6 K/uL (1.0-4.8) L Monocytes # (Auto) 0.9 K/uL (0.1-1.0) Eosinophils # (Auto) 0.07 K/uL (0.00-0.70) Basophils # (Auto) 0.05 K/uL (0.00-0.20) Absolute Immature Granulocyte (auto 0.02 K/uL (0-1) Nucleated Red Blood Cells 0.0 % (0.0-0.19) White Cell Morphology Comment See comments Sodium Level 138 mmol/L (136-145) Potassium Level 4.2 mmol/L (3.5-5.1) Chloride Level 103 mmol/L (101-111) Carbon Dioxide Level 28 mmol/L (21-32) Blood Urea Nitrogen 24 mg/dL (7-18) H Creatinine 1.1 mg/dL (0.5-1.3) Glomerular Filtration Rate Calc 75 mL/min (>90) Random Glucose 112 mg/dL (70-105) H Total Calcium 8.5 mg/dL (8.5-10.1) Troponin I High Sensitivity 36 ng/L (4-75) B-Type Natriuretic Peptide 516 pg/mL (0-100) H EKG Comment: Rate 70, ventricular paced rhythm or MN 73, QT 44 ED Course ED Course Orders Procedure Category Date Status Time Cbc With Differential LAB 05/16/25 Complete 20:52 Basic Metabolic Panel LAB 05/16/25 Complete 20:52 Troponin I High LAB 05/16/25 Complete Sensitivity 20:52 12 Lead Ekg Tracing- EKG 05/16/25 Logged Technical 20:52 B-Type Natriuretic LAB 05/16/25 Complete Peptide 20:52 Chest 1vw RAD 05/16/25 Resulted 20:58 Ipratropium/Albuterol PHA 05/16/25 Complete Neb (Duoneb) 22:00 Guaifenesin Sug-Ramiro PHA 05/16/25 Complete 100 Mg/5ml (Robituss 22:00 Prednisolone 15mg/5ml PHA 05/16/25 Complete Soln (Orapred 15mg 22:00 Current Medications Medications (Trade) Dose Ordered Sig/Connie Route PRN Reason Start Time Stop Time Status Last Admin Dose Admin Albuterol (DUOneb) 1 udvial ONCE ONCE IH 05/16/25 22:00 05/16/25 22:01 DC 05/16/25 22:26 Guaifenesin (RobiTUSSin SUGAR-FREE 100 MG/ 5 ML UDCUP) 100 mg ONCE ONCE PO 05/16/25 22:00 05/16/25 22:01 DC 05/16/25 22:32 Prednisolone Sodium Phosphate (oraPRED 15MG/ 5ML SOLN) 15 mg ONCE ONCE PO 05/16/25 22:00 05/16/25 22:03 DC 05/16/25 22:32 Vital Signs Date Time Temp Pulse Resp B/P (MAP) Pulse Ox O2 Delivery O2 Flow Rate FiO2 05/16/25 22:33 98.8 88 18 142/66 99 Room Air* 0 21 05/16/25 22:27 71 19 05/16/25 20:50 98.6 70 18 134/81 97 HEART Score Response (Comments) Value History: Moderate suspicion (+1) 1 EKG: Normal 0 Age: 45-65yrs (+1) 1 Risk Factors: 3+ risk factors (+2) 2 Initial Troponin: Normal limit (0) 0 HEART Score Risk: Mod Risk for MACE (4-6) Total 4 Medical Decision Making MDM The patient is a 65-year-old male with a past medical history of hypertension, type 2 diabetes, hyperlipidemia, CAD, status post stent placement, CABG x3 in January 2016, CHF with reduced ejection fraction, biventricular ICD upgrade with AV node ablation on 07/08/2023 due to permanent atrial fibrillation. Patient stated that he comes to the ER today due to chest pain, cough, patient stated that he left-sided thoracentesis done today at [facility], after that he went to see his PCP due to cough, stated that he was negative for COVID, strep, flu, he received a 1 shot of penicillin. Stated he was not sure if the chest pain is due to heart worse because of been having cough x1 week. Chest pain Pleuritic pain Possible pneumonia Ordered chest pain workup Laboratory workup within normal limits, troponin 36. EKG shows ventricular paced rhythm Patient he will be treated with a DuoNeb, prednisolone oral, guaifenesin. DX & DISP Disposition: Discharge Departure Impression: Primary Impression: Chest pain, pleuritic Additional Impressions: Respiratory infection, CHF exacerbation Condition: Stable Scripts Guaifenesin (Guaifenesin) 100 Mg/5 Ml Liq 5-10 ML PO QID for cough for 6 Days, #240 ML 0 Refills Prov: MAINE DURHAM MD 05/16/25 Prednisolone Sod Phosphate (Prednisolone Sod Phosphate) 15 Mg/5 Ml (5 Ml) Solution 5 ML PO BID for 2 Days, #30 ML 0 Refills Prov: MAINE DURHAM MD 05/16/25 Referrals: JOSE JONES (PCP) MAINE DURHAM MD May 16, 2025 21:38
--- NOTE | 2025-05-16 22:11 | HMCIMG ---
EXAM: CR Chest, 1 View. CLINICAL HISTORY: cp COMPARISON: None provided. FINDINGS: LUNGS: Mild pulmonary edema. PLEURAL SPACES: Small to moderate bilateral effusions (right greater than left). No pneumothorax. MEDIASTINUM: AICD leads appear in satisfactory positions. Mild cardiomegaly and mild central pulmonary vascular congestion. BONES: No aggressive appearing osseous lesion seen. IMPRESSION: 1. Mild pulmonary edema with small to moderate bilateral pleural effusions, right greater than left. 2. Mild cardiomegaly with mild central pulmonary vascular congestion. 3. AICD leads in satisfactory position. /[place]
[2025-05-16] MEDS ORDERED: GUAI100S13 PO (22:23)
[2025-05-16] MEDS ORDERED: PRED15SO81 PO (22:23)
[2025-05-16 22:27] VITALS: PULSE 71; RESP 19
[2025-05-16 22:33] VITALS: BP 142/66; PULSE 88; RESP 18; TEMP 98.8; O2SAT 99
[2025-05-16] MEDS ORDERED: HYDR-3830 PO (22:52)
--- NOTE | 2025-05-17 08:05 | EKG ---
[facility] Test Date: 2025-05-16 Test Time: 20:53:40 Pat Name: MARY STEWART Department: [facility] Room: Gender: M Door Patcher: [id number] : 1960 Requested By: GREG KRAMER Order Number: [id number] Reading MD: Loi Saavedra Measurements Intervals [place] Rate: 70 P: 76 TN: 73 QRS: -79 QRSD: 73 T: 57 QT: 415 QTc: 448 Interpretive Statements Ventricular-paced rhythm Biventricular paced rhythm Compared to ECG 10/30/2024 14:47:01 No significant changes Electronically Signed On 05-18-2025 08:22:10 MANAGER OF ENTERPRISE by Loi Saavedra Please click the below link to view image of tracing.
== END 2025-05-16 22:47 | disposition home or self-care (01) ==
LOC: EDH 20:49
DX: R07.81 Pleurodynia (principal); J98.8 Other specified respiratory disorders; I11.0 Hypertensive heart disease with heart failure; I50.9 Heart failure, unspecified; E11.9 Type 2 diabetes mellitus without complications; E78.00 Pure hypercholesterolemia, unspecified; I25.2 Old myocardial infarction; J44.9 Chronic obstructive pulmonary disease, unspecified; I48.91 Unspecified atrial fibrillation; I25.10 Atherosclerotic heart disease of native coronary artery without angina pectoris; Z95.5 Presence of coronary angioplasty implant and graft; Z95.1 Presence of aortocoronary bypass graft; Z79.899 Other long term (current) drug therapy; Z95.810 Presence of automatic (implantable) cardiac defibrillator; Z79.82 Long term (current) use of aspirin; Z79.51 Long term (current) use of inhaled steroids
CPT/HCPCS: 36415; 71045; 80048; 83880; 84484; 85025; 93005; 94640; 99285

== ENCOUNTER 2025-05-24 17:20 | Observation (INO) | payer MEDICAID ==
[~2025-05-24] VITALS: Ht 162.6 cm; Wt 83.9 kg
[~2025-05-24 17:20] MED LIST changes: +GUAI100S13 PO; +HYDR-3830 PO; +PRED15SO81 PO
[2025-05-24 17:41] LABS: IMMATURE GRANULOCYTE ABSOLUTE 0.05 K/uL (0-1); NUCLEATED RED BLOOD CELLS 0.0 % (0.0-0.19); PLATELET COUNT (AUTO) 155 K/uL (130-400); RED BLOOD CELL COUNT(AUTO) 4.73 MIL/uL (4.50-6.20); RED CELL DISTRIBUTION WIDTH 15.3 % (11.0-15.5); WHITE BLOOD COUNT (AUTO) 7.4 K/uL (4.8-10.8)
[2025-05-24 17:49] LABS: CREATININE 0.9 mg/dL (0.5-1.3); GLOMERULAR FILTR. RATE CALC 96.0 mL/min (>90); GLUCOSE,RANDOM 125.0 mg/dL (70-105); SODIUM SERUM 137.0 mmol/L (136-145); UREA NITROGEN, BLOOD 19.0 mg/dL (7-18)
[2025-05-24 17:51] LABS: INR 1.14 (0.85-1.15)
[2025-05-24 17:56] LABS: CREATINE KINASE, TOTAL 143.0 U/L (21-232)
--- NOTE | 2025-05-24 18:36 | HMCIMG ---
EXAM CR chest, 1 view CLINICAL HISTORY Chest pain TECHNIQUE Single frontal radiograph of the chest COMPARISON CR chest 1 view dated 05/16/2025 21:19 EST FINDINGS LUNGS There is bilateral lower lung zone volume loss with features of compression atelectasis related to adjacent pleural effusions. No new focal consolidation or pneumothorax is identified. PLEURAL SPACES Bilateral moderate pleural effusions are present, not significantly changed in size compared with the prior examination. HEART AND MEDIASTINUM There is gross cardiomegaly. Pulmonary vascular markings are prominent, consistent with pulmonary vascular congestion. Median sternotomy sutures are present. The mediastinal contours are otherwise unremarkable. DEVICES Defibrillator and pacemaker devices are present with generators overlying the left and right anterior chest santos, respectively. Leads course to the heart in expected positions, without radiographic evidence of hardware-related complication. BONES AND SOFT TISSUES No acute or aggressive osseous abnormality is seen. Visualized soft tissues are unremarkable. IMPRESSION * Gross cardiomegaly with pulmonary vascular congestion and bilateral moderate pleural effusions with associated lower lobe compression atelectasis, without significant interval change from 05/16/2025, compatible with congestive cardiac failure in the appropriate clinical context. * Bilateral cardiac devices and median sternotomy changes without radiographic evidence of hardware complication. /[place]
--- NOTE | 2025-05-24 20:36 | ERN ---
ED Note History of Present Illness Stated Complaint: SHORTNESS OF BREATH Chief Complaint: Shortness of Breath Time Seen by MD: 19:03 Time Seen by Midlevel: 19:03 Dictation: The patient is a 65-year-old male with a history of CAD, hypertension, CHF, hyp erlipidemia, diabetes, AICD who presents to the emergency department with complaints of shortness of breath onset a week ago. Patient reports he had a right thoracentesis on Tuesday and he had paracentesis on Tuesday. Reports that today he was supposed to get a thoracentesis on his left side and went to [facility] but they told him they were not able to do it today until Tuesday. Patient reports he is taking Lasix 20 mg daily. Reports a cough that he has had for awhile. Patient was seen here and was told he had an upper respiratory infection. Patient denies any fevers Allergies: Coded Allergies: No Known Drug Allergies (Unverified Allergy, Unknown, 03/29/23) Home Meds Active Scripts Hydroxyzine HCl (Hydroxyzine HCl) 10 Mg Tablet, 1 TAB PO HS for insonia for 30 Days, #30 TAB 0 Refills Prov:MAINE DURHAM MD 05/16/25 Guaifenesin (Guaifenesin) 100 Mg/5 Ml Liq, 5-10 ML PO QID for cough for 6 Days, #240 ML 0 Refills Prov:MAINE DURHAM MD 05/16/25 Prednisolone Sod Phosphate (Prednisolone Sod Phosphate) 15 Mg/5 Ml (5 Ml) Solution, 5 ML PO BID for 2 Days, #30 ML 0 Refills Prov:MAINE DURHAM MD 05/16/25 Tramadol Hcl (Tramadol HCl) 50 Mg Tablet, 50 MG PO Q6HPRN PRN for PAIN, #15 TAB 0 Refills Prov:NICOLETTE SWAIN MD 11/01/24 Reported Medications Lactulose (Lactulose) 10 Gram/15 Ml Solution, 10 GM PO HS PRN for CONSTIPATION, ML 08/01/24 Aspirin (Aspirin EC) 81 Mg Tablet.dr, 81 MG PO DAILY, TAB 08/01/24 Acetaminophen (Tylenol) 500 Mg Tab, 500 MG PO TID PRN for PAIN, TAB 12/27/23 Budesonide/Formoterol Fumarate (Symbicort 80-4.5 Mcg Inhaler) 80 Mcg-4.5 Mcg/Actuation Inhr, 2 PUFF IH BID PRN for SHORTNESS OF BREATH, INH 12/27/23 Nitroglycerin (Nitroglycerin) 0.4 Mg Tab.subl, 0.4 MG SL Q5MIN PRN for CHEST PAIN, TAB.SL 08/28/23 Magnesium Oxide (Magnesium) 400 Mg Magnesium Capsule, 400 MG PO DAILYBKFST, CAP 08/01/23 Metoprolol Succinate (Metoprolol Succinate) 50 Mg Tab.er.24h, 50 MG PO BID, TAB 07/17/23 Torsemide (Torsemide) 20 Mg Tablet, 20 MG PO BID, TAB 07/17/23 Past Medical History Past Medical History: A-Fib, CAD, CHF, COPD, Diabetes-Type II, High Cholesterol, Heart Disease, Hypertension, [place] Additional Past Medical Hx: STATES CARDIAC STENTS Surgical History: CABG, Pacer/AICD, Other Surgical History Other: TWO DEFIBRILLATORS INSERTED AND CARDIAC ABLATION Social History: Negative, Lives with family RN Note Reviewed/Agreed w/PFSH: Yes Review of System Dictation Constitutional: Negative for fever,chills, and weight loss Eyes: Negative for injury, pain,redness, and discharge ENT: Negative for injury,pain or swelling Cardiovascular: Negative for chest pain, palpitations, and edema Respiratory: Negative for wheezing, positive for shortness of breath, cough Abdomen/GI: Negative for abdominal pain, nausea, vomiting, diarrhea, and constipation Back: Negative for injury and pain : Negative for injury, bleeding and discharge MS/Extremity: Negative for injury and deformity Skin: Negative for rash, and discoloration Neuro: Negative for headache, weakness, numbness, tingling, and seizure Psych: Negative for suicide ideation, homicidal ideation, and hallucinations Initial Vital Sign VS Vital Signs Date Time Temp Pulse Resp B/P (MAP) Pulse Ox O2 Delivery O2 Flow Rate FiO2 05/24/25 17:21 98.1 66 20 117/64 95 Room Air 05/24/25 21:26 0 21 Physical Exam Dictation Vital Signs reviewed General Appearance: Alert, oriented x 3, no acute distress, well developed, nourished. Head and Face: non-traumatic. Eyes: PERRL, pink conjunctivas, eyelid no trauma, anterior chamber with arcus senilis. Ears: Pinnas intact and no signs of trauma or erythema ear canals clear and no discharge TM no erythema Nose: No discharge, no bleeding. Oropharynx: Mouth normal, tongue pink. pharynx clear,no erythema, tonsils no exudates, no abscesses noted, mucous membrane moist Neck: Supple, non-tender, no thyromegaly, no masses, no JVD, no bruits Breast:Deferred Chest:No tenderness, no crepitus, no paradoxical movement, no retractions Lungs:Clear, well-ventilated, symmetric, no rales, no wheezing, no rhonchi, no stridor, diminished sounds bilaterally Heart: Regular rate, regular rhythm, no murmur, no gallops Vascular: no peripheral edema, Abdomen: Soft, positive bowel sounds, nondistended, no guarding, nontender, no rebound, no masses no hepatomegaly, no splenomegaly, no Tompkins's sign, no hernias. Rectal: Deferred Genital: Deferred Neurological: Normal speech, motor function intact, sensory function intact Musculoskeletal: Neck nontender, full range of motion, back nontender, full r sherrie of motion, Extremities: nontender, full range of motion Skin: Color pink, dry, no turgor, no rash, no lacerations, no abrasions, no contusions. Lymphatic: Deferred Results (Laboratory/Radiology) Laboratory/Radiology Laboratory Tests Test 05/24/25 17:33 White Blood Count 7.4 K/uL (4.8-10.8) Red Blood Count 4.73 MIL/uL (4.50-6.20) Hemoglobin 14.8 g/dL (14.0-18.0) Hematocrit 45.8 % (42-54) Mean Corpuscular Volume 96.8 fL (79-99) Mean Corpuscular Hemoglobin 31.3 pg (27.0-33.0) Mean Corpuscular Hemoglobin Concent 32.3 g/dL (32.0-36.0) Red Cell Distribution Width 15.3 % (11.0-15.5) Platelet Count 155 K/uL (130-400) Mean Platelet Volume 9.5 fL (7.5-10.5) Immature Granulocyte % (Auto) 0.7 % (0-1) Neutrophils (%) (Auto) 78.1 % (40.0-77.0) H Lymphocytes (%) (Auto) 10.4 % (21.0-51.0) L Monocytes (%) (Auto) 8.1 % (3.0-13.0) Eosinophils (%) (Auto) 2.3 % (0.0-8.0) Basophils (%) (Auto) 0.4 % (0.0-5.0) Neutrophils # (Auto) 5.8 K/uL (1.8-7.7) Lymphocytes # (Auto) 0.8 K/uL (1.0-4.8) L Monocytes # (Auto) 0.6 K/uL (0.1-1.0) Eosinophils # (Auto) 0.17 K/uL (0.00-0.70) Basophils # (Auto) 0.03 K/uL (0.00-0.20) Absolute Immature Granulocyte (auto 0.05 K/uL (0-1) Nucleated Red Blood Cells 0.0 % (0.0-0.19) Prothrombin Time 11.9 SEC (9.6-11.6) H Prothromb Time International Ratio 1.14 (0.85-1.15) Activated Partial Thromboplast Time 26.5 SEC (26.3-35.5) Sodium Level 137 mmol/L (136-145) Potassium Level 4.4 mmol/L (3.5-5.1) Chloride Level 106 mmol/L (101-111) Carbon Dioxide Level 29 mmol/L (21-32) Blood Urea Nitrogen 19 mg/dL (7-18) H Creatinine 0.9 mg/dL (0.5-1.3) Glomerular Filtration Rate Calc 96 mL/min (>90) Random Glucose 125 mg/dL (70-105) H Total Calcium 8.4 mg/dL (8.5-10.1) L Total Creatine Kinase 143 U/L (21-232) # Troponin I High Sensitivity 30.8 ng/L (4-75) B-Type Natriuretic Peptide 576 pg/mL (0-100) H REASON: CP ORDERING PHYSICIAN: ESTUARDO SPENCER DO PROCEDURE: CXR1VW - CHEST 1VW EXAM CR chest, 1 view CLINICAL HISTORY Chest pain TECHNIQUE Single frontal radiograph of the chest COMPARISON CR chest 1 view dated 05/16/2025 21:19 EST FINDINGS LUNGS There is bilateral lower lung zone volume loss with features of compression atelectasis related to adjacent pleural effusions. No new focal consolidation or pneumothorax is identified. PLEURAL SPACES Bilateral moderate pleural effusions are present, not significantly changed in size compared with the prior examination. HEART AND MEDIASTINUM There is gross cardiomegaly. Pulmonary vascular markings are prominent, consistent with pulmonary vascular congestion. Median sternotomy sutures are present. The mediastinal contours are otherwise unremarkable. DEVICES Defibrillator and pacemaker devices are present with generators overlying the left and right anterior chest santos, respectively. Leads course to the heart in expected positions, without radiographic evidence of hardware-related complication. BONES AND SOFT TISSUES No acute or aggressive osseous abnormality is seen. Visualized soft tissues are unremarkable. IMPRESSION * Gross cardiomegaly with pulmonary vascular congestion and bilateral moderate pleural effusions with associated lower lobe compression atelectasis, without significant interval change from 05/16/2025, compatible with congestive cardiac failure in the appropriate clinical context. * Bilateral cardiac devices and median sternotomy changes without radiographic evidence of hardware complication. /[place] Labs Reviewed?: Yes EKG: (+) rhythm (Ventricular paced rhythm) EKG Comment: Date:05/24/2025 Time:1720 Ventricular rate:67 HI interval:59 QRS duration:147 QT/QTc:474/502 EKG interpretation: Ventricular paced rhythm Reviewed by ED Attending no STEMI ED Course ED Course Orders Procedure Category Date Status Time Cardiac Panel LAB 05/24/25 Complete 17:24 Cbc With Differential LAB 05/24/25 Complete 17:24 Basic Metabolic Panel LAB 05/24/25 Complete 17:24 Prothrombin Time With LAB 05/24/25 Complete INR 17:24 Partial LAB 05/24/25 Complete Thromboplastin Time 17:24 12 Lead Ekg Tracing- EKG 05/24/25 Logged Technical 17:24 Chest 1vw RAD 05/24/25 Resulted 17:24 B-Type Natriuretic LAB 05/24/25 Complete Peptide 17:24 Furosemide 20mg Vial PHA 05/24/25 In Process (Lasix 20mg Vial) 20:00 Ipratropium/Albuterol PHA 05/24/25 Complete Neb (Duoneb) 22:00 Edm Admit Bridge Order ADM 05/24/25 Transmitted 22:43 Current Medications Medications (Trade) Dose Ordered Sig/Connie Route PRN Reason Start Time Stop Time Status Last Admin Dose Admin Albuterol (DUOneb) 1 UDVIAL ONCE ONCE IH 05/24/25 22:00 05/24/25 22:01 DC 05/24/25 22:27 Furosemide (LASix 20MG VIAL) 20 mg ONCE IV 05/24/25 20:00 05/24/25 23:30 05/24/25 21:37 Vital Signs Date Time Temp Pulse Resp B/P (MAP) Pulse Ox O2 Delivery O2 Flow Rate FiO2 05/24/25 22:27 71 18 05/24/25 21:26 98.2 70 24 122/80 97 Room Air* 0 21 05/24/25 17:21 98.1 66 20 117/64 95 Room Air Medical Decision Making MDM MDM: The patient is a 65-year-old male with a history of CAD, hypertension, CHF, hyperlipidemia, diabetes, AICD who presents to the emergency department with complaints of shortness of breath onset a week ago. Patient reports he had a right thoracentesis on Tuesday and he had paracentesis on Tuesday. Reports that today he was supposed to get a thoracentesis on his left side and went to [facility] but they told him they were not able to do it today until Tuesday. Patient reports he is taking Lasix 20 mg daily. Reports a cough that he has had for awhile. Patient was seen here and was told he had an upper respiratory infection. Patient denies any fevers CBC showed no leukocytosis, no anemia, chemistry showed BNP of 576, GFR of 96, glucose of 125. Chest x-ray showed cardiomegaly with pulmonary vascular congestion and bilateral moderate pleural effusions. Patient will be admitted for further evaluation and diuresis. Differential diagnosis: CHF exacerbation, pleural effusion, pneumonia, ACS, tachyarrhythmia, fluid overload Comorbidities: Diabetes, hypertension, CAD, CHF, pleural effusion Tests considered and not ordered secondary to shared decision making include: none Previous outside records reviewed: none Risk of complication and/or morbidity or mortality of patient management: The patient meets criteria for admission. Need for emergency major/minor surgery: No There are no social concerns with this patient. I independently interpreted the tests I ordered (labs, urinalysis, etc.). I discussed the case with the hospitalist for admission. Jack VARNER who accepts admission I discussed the case with the following specialists: none. Historian: pateint. I independently interpreted imaging studies and EKGs that I ordered (US, CT, XR, EKG, etc.). External chart review: none. Medical management and examination interpretation discussions were had by me with other qualified healthcare professionals as indicated for the patient's care. DX & DISP Disposition: Inpatient Decision to Admit Date: May 24, 2025 Decision to Admit Time: 22:46 Departure Impression: Primary Impression: Acute exacerbation of congestive heart failure Additional Impressions: Bilateral pleural effusion, Dyspnea Condition: Stable Referrals: JOSE JONES (PCP) I have reviewed the case, and I agree with, Diagnosis and Plan SAMY ZAMORA ASSEMBLER SURGICAL GARMENT May 24, 2025 20:36
[2025-05-24 22:27] VITALS: PULSE 71; RESP 18
--- NOTE | 2025-05-24 22:52 | HP ---
History of Present Illness Reason for Visit: Shortness of breaths History of Present Illness Mr. Kelley is a 65-year-old male that was seen and examined today on 05/24/2025. Patient is a good historian of personal health Patient reports that he came to the emergency department with a chief complaint of shortness of breaths. Onset was two days. Location is to lungs. Duration is on and off. Character is described as" like my lungs have fluid and I need a thoracentesis. "symptoms are aggravated with physical activity. Patient states symptoms are usually alleviated with paracentesis and thoracentesis patient reports he gets a thoracentesis every Tuesday and every Tuesday however due to the holidays who was not able to get it scheduled thoracentesis today on 05/24/2025 due to Interventional Radiology Department only having a skeleton crew. Patient denies any associated chest pain or dizziness. Today in the emergency department CBC unremarkable, chemistry unremarkable, BNP 576, no urinalysis has been collected or sent to lab, chest x-ray shows pulmonary vascular congestion. Emergency room physician recommended that patient be admitted with a diagnosis of CHF exacerbation Past Medical History Patient History: Carcinomas SISTER, , Age: 60 years and older, Cause: Stomach cancer Cardiovascular disease FATHER, , Age: 50's - 60, Cause: Heart attack Chronic obstructive pulmonary disease FATHER, , Age: 50's - 60, Cause: Heart attack Hypertension FATHER, , Age: 50's - 60, Cause: Heart attack Unknown (BONE CANCER) MOTHER, , Age: 60 years and older, Cause: Cancer of bone SISTER, , Age: 60 years and older, Cause: Stomach cancer ADDITIONAL PAST MEDICAL HISTORY: [Diabetes mellitius type2, systolic and diastolic heart failure with LVEF less than 20% by 2D echo on 08/28/2023, atrial fibrillation, hypertension, hyperlipidemia, CAD] SOCIAL HISTORY: [Negative for smoking, alcohol use, drug use. Patient lives with his , Joceline Kelley. Patient is typically independent of his ADLs. Patient denies difficulty pain is bills. SURGICAL HISTORY: [AICD, CABG, multiple paracentesis and thoracentesis, opti denae implant] Review of Systems General: No Fever, No Chills, No Night Sweats, No Fatigue, No Malaise, No Appetite, No Other HEENT: No Head Aches, No Visual Changes, No Eye Pain, No Ear Pain, No Dys phasia, No Sinus Congestion, No Post Nasal Drip, No Sore Throat, No Other Pulmonary: Dyspnea; No Cough, No Pleuritic Chest Pain, No Other Cardiovascular: No: Chest Pain, Palpitations, Orthopnea, Paroxysmal Noc. D yspnea, Edema, Lt Headedness, Other Gastrointestinal: No: Nausea, Vomiting, Abdominal Pain, Diarrhea, Constipation, Melena, Hematochezia, Other Genitourinary: No Dysuria, No Frequency, No Incontinence, No Hematuria, No Retention, No Other Musculoskeletal: No: other, neck pain, shoulder pain, arm pain, back pain, hand pain, leg pain, foot pain Skin: No Urticaria, No Rash, No Other Neurological: No: Weakness, Numbness, Incoordination, Change in speech, Confusion, Seizures, Other Allergies: Coded Allergies: No Known Drug Allergies (Unverified Allergy, Unknown, 03/29/23) Scheduled Aspirin (Aspirin EC), 81 MG PO DAILY, (Reported) Guaifenesin (Guaifenesin), 5-10 ML PO QID Hydroxyzine HCl (Hydroxyzine HCl), 1 TAB PO HS Metoprolol Succinate (Metoprolol Succinate), 50 MG PO BID, (Reported) Torsemide (Torsemide), 20 MG PO BID, (Reported) Scheduled PRN Acetaminophen (Tylenol), 500 MG PO TID PRN for PAIN, (Reported) Nitroglycerin (Nitroglycerin), 0.4 MG SL Q5MIN PRN for CHEST PAIN, (Reported) Discontinued Medications Budesonide/Formoterol Fumarate (Symbicort 80-4.5 Mcg Inhaler), 2 PUFF IH BID PRN for SHORTNESS OF BREATH, (Reported) Lactulose (Lactulose), 10 GM PO HS PRN for CONSTIPATION, (Reported) Magnesium Oxide (Magnesium), 400 MG PO DAILYBKFST, (Reported) Prednisolone Sod Phosphate (Prednisolone Sod Phosphate), 5 ML PO BID Tramadol Hcl (Tramadol HCl), 50 MG PO Q6HPRN PRN for PAIN Exam Vital Signs Vital Signs Date Time Temp Pulse Resp B/P (MAP) Pulse Ox O2 Delivery O2 Flow Rate FiO2 05/24/25 22:27 71 18 05/24/25 21:26 98.2 122/80 97 Room Air* 0 21 General Appearance: Alert, Oriented X3, Cooperative, mild distress HEENT: Atraumatic, EOMI Respiratory: Other (Diminished air entry to bilateral lower lobes) Cardiovascular: Normal S1, Normal S2, Other (S3) Abdominal: Normal bowel sounds, Soft, No tenderness Extremities: No clubbing, No cyanosis, No edema Skin: No significant lesion Neuro: Normal speech, Strength at 5/5 X4 ext, Sensation intact, Cranial nerves 3-12 NL Psych/Mental Status: Mental status NL, Mood NL, Thoughts/Content NL Assessment/Plan ASSESSMENT: [ Acute on chronic combined systolic and diastolic heart failure exacerbation with LVEF less than 20% by 2D echo on 08/28/2023, POA Bilateral pleural effusion, POA Diabetes mellitius type2 Atrial fibrillation Hypertension Hyperlipidemia AICD status] PLAN: [ Admit patient to pccu as inpatient status. Place patient on telemetry monitoring. Monitor intake and output every shift. Weight patient daily. 1500 mL daily fluid restriction. Lasix 40 mg IV twice daily. DuoNebs Consider resuming home medications once they have been reconciled. At time of admission home medications has been reconciled. For now: Administer metoprolol 5 mg IV every 5 minutes as needed for AFib RVR with heart rate greater than 120 beats per minute max three doses. Metoprolol 12.5 mg by mouth twice daily Hydralazine 10 mg IV every 4 hours for systolic blood pressure greater than 160 mmHg Atorvastatin 40 mg by mouth once daily GI prophylaxis, famotidine DVT prophylaxis, Lovenox ADVANCED CARE PLANNING 1. Which of the following were discussed? Hospice Care - Yes Therapeutic options - yes Advance Directives - Yes - patient states that he does not have any advance directives in place at this time, however his can make decisions for him if he becomes unable Other discussions - patient wishes to remain a full code at this time 2. Discussed with who? Patient 3. Voluntary nature of this service was explained to the patient? Yes 4. Amount of time spent - ___16 minutes____ 5. Reviewed by Physician? (if this service was performed by NPP) Yes This document was generated in part using voice recognition software, occasional wrong word or sound alike substitutions may have occurred due to the inherent limitations of voice recognition software. Read the chart carefully and recognize using context, where the substitutions have occurred. Although every effort was made to edit the content, stuntman and typing errors may occur ATTESTATION BY PHYSICIAN I have seen and examined the patient. I reviewed the documentation, medical decision making, and treatment plan as noted by the mid-level provider above. I agree with the findings and plan of care.] MILADYS CANCINO May 24, 2025 22:52 PORSCHE BURR MD May 31, 2025 06:43
[2025-05-24] MEDS ORDERED: LACTULOSE 20 GM/30 ML UDCUP PO PRN (23:00)
[2025-05-25] VITALS: RESP 17; O2SAT 96
[2025-05-25 00:02] LABS: APPEARANCE,URINE CLEAR (CLEAR); GLUCOSE, URINE (UA) NEGATIVE (NEGATIVE); LEUKOCYTE ESTERASE ,URINE NEGATIVE Leu/uL (NEGATIVE); NITRATE,URINE NEGATIVE (NEGATIVE); OCCULT BLOOD,URINE NEGATIVE (NEGATIVE)
[2025-05-25 00:12] LABS: ADD UA MICROSCOPIC NO
[2025-05-25 04:00] VITALS: BP 119/79; TEMP 98.4; O2SAT 97
[2025-05-25 06:03] LABS: IMMATURE GRANULOCYTE ABSOLUTE 0.04 K/uL (0-1); NUCLEATED RED BLOOD CELLS 0.0 % (0.0-0.19); PLATELET COUNT (AUTO) 142 K/uL (130-400); RED BLOOD CELL COUNT(AUTO) 4.93 MIL/uL (4.50-6.20); RED CELL DISTRIBUTION WIDTH 15.5 % (11.0-15.5); WHITE BLOOD COUNT (AUTO) 8.0 K/uL (4.8-10.8)
[2025-05-25 06:32] LABS: CREATININE 1.0 mg/dL (0.5-1.3); GLOMERULAR FILTR. RATE CALC 85.0 mL/min (>90); GLUCOSE,RANDOM 111.0 mg/dL (70-105); PHOSPHORUS 3.8 mg/dL (2.5-4.9); SODIUM SERUM 140.0 mmol/L (136-145); UREA NITROGEN, BLOOD 19.0 mg/dL (7-18)
[2025-05-25 07:28] VITALS: PULSE 70; RESP 18; O2SAT 94
--- NOTE | 2025-05-25 07:30 | NUR ---
REPORT RECEIVED FROM ALYSSA MCCARTHY
--- NOTE | 2025-05-25 08:14 | NUR ---
PT PROVIDED HIS AM MEAL TRAY
--- NOTE | 2025-05-25 08:37 | EKG ---
[facility] Test Date: 2025-05-24 Test Time: 17:20:28 Pat Name: MARY STEWART Department: [facility]IP Room: ED 50 Gender: M Computer Technology Trainer: [id number] : 1960 Requested By: ESTUARDO SPENCER Order Number: [id number] Reading MD: Angelia Lewis Measurements Intervals [place] Rate: 67 P: 0 MS: 59 QRS: 257 QRSD: 147 T: 83 QT: 474 QTc: 502 Interpretive Statements Ventricular-paced complexes Biventricular paced rhythm Compared to ECG 05/16/2025 20:53:40 No significant changes Electronically Signed On 05-27-2025 08:55:37 SOURCING COORDINATOR by Angelia Lewis Please click the below link to view image of tracing.
[2025-05-25] MEDS ORDERED: FAMOTIDINE 20MG TAB PO SCH (09:00)
[2025-05-25] MEDS ORDERED: ENOXAPARIN SODIUM 40 MG/0.4 ML SYRINGE SQ SCH (09:00)
--- NOTE | 2025-05-25 09:11 | NUR ---
PT OOB TO BATHROOM W/USE OF WALKER
--- NOTE | 2025-05-25 10:52 | NUR ---
PATIENT DECLINING TO RECIEVE ADMITTING BED. PATIENT IS DECLINING TO CONTINUE HOSPTIAL STAY. PATIENT IS ALSO DECLINING TO SIGN AMA OR REFUSAL OF TREATMENT. STATES WANTS TO BE MEDICALLY CLEARED AND DISCHARGED. DR BURR INFORMED. TO SEE PT SHORTLY.
--- NOTE | 2025-05-25 11:05 | NUR ---
DR BURR AT BEDSIDE TO EXPLAIN CARE PLAN WELL RISKS OF DECLINING ADMISSION.
--- NOTE | 2025-05-25 11:23 | NUR ---
PATIENT SIGNED AMA FORM. RISKS EXPLAINED TO PATIENT BY DR BURR. VERBALIZED UNDERSTANDING. IV DISCONTINUED.
--- NOTE | 2025-05-25 11:38 | NUR ---
AMA AT THIS TIME
--- NOTE | 2025-05-31 06:53 | DS ---
Discharge Summary Hospital Course Summary: HE IS IN HIS WILLING TO SIGN AGAINST MEDICAL ADVICE DISCHARGE PAPERWORK LATE ENTRY FOR DOS 05/25/25 PATIENT WAS WOUND HIM TO LEAVE AGAINST MEDICAL ADVICE IN THE MORNING ON 2024. HE WAS UPSET BECAUSE HE WENT IN FOR HIS USUAL TWICE A WEEK THORACENTESIS AND BECAUSE OF THE HOLIDAY PROTEIN WAS ONLY A SKELETAL CREW AVAILABLE. HE WAS UNABLE TO GET THE PROCEDURE DONE AND THEREFORE PRESENTED YESTERDAY WITH INCREASING SHORTNESS FOR BREATH. PATIENT ALSO DESCRIBED PRODUCTIVE COUGH PHYSICAL EXAM CHEST X-RAY CONFIRMED THE PATIENT HAS ACUTE VERSUS CHRONIC BRONCHITIS. DISPOSITION: PATIENT IS WILLING TO SALINE AMA PAPERWORK AT THIS TIME. HE UNDERSTANDS THERE IS SIGNIFICANT RISK IN LEAVING THE HOSPITAL WITHOUT TREATMENT. WORSENING CONGESTIVE HEART FAILURE, WORSENING SHORTNESS OF BREATH, ABNORMAL HEART RHYTHM AND/OR . PATIENT STATES HE WILL FOLLOW UP ON TUESDAY WITH HE PULMONARY DOCTOR IN ORDER TO RECEIVE THE PROCEDURE. IN THE MEANTIME, HE DOES HAVE A P.O. DIURETICS AT HOME. BRONCHITIS: WE WILL CALL IN PRESCRIPTION TO THE PATIENT'S PHARMACY IN THE [facility] FOR FIVE DAYS OF AUGMENTIN 875 MG, 1 P.O. TWICE DAILY. NO REFILLS PATIENT WENT ON TO SAY THAT HIS SPOUSE IS HOSPITALIZED AT THE PRESENT TIME AT THIS FACILITY AND HE WILL BE AND AROUND THE HOSPITAL LONG SHE IS HERE. TIME OF D/C PREPARATION/EXAM/OTHER BILLABLES: 10 MIN Director Of Search Engine Marketing(s): NONE, JASMINE D/C Procedure(s): IV DIURESIS Assessment/Plan: ASSESSMENT: [ ] PLAN: [ ] SEE ABOVE Discharge Instructions: F/U Tuesday05/27/25 FOR RE EVAL BY HIS PULMONARY DOCTOR, CONSIDERATION FOR THORACENTESIS Home Medications: Active Scripts Hydroxyzine HCl (Hydroxyzine HCl) 10 Mg Tablet, 1 TAB PO HS for insonia for 30 Days, #30 TAB 0 Refills Prov:MAINE DURHAM MD 05/16/25 Guaifenesin (Guaifenesin) 100 Mg/5 Ml Liq, 5-10 ML PO QID for cough for 6 Days, #240 ML 0 Refills Prov:MAINE DURHAM MD 05/16/25 Reported Medications Aspirin (Aspirin EC) 81 Mg Tablet.dr, 81 MG PO DAILY, TAB 08/01/24 Acetaminophen (Tylenol) 500 Mg Tab, 500 MG PO TID PRN for PAIN, TAB 12/27/23 Nitroglycerin (Nitroglycerin) 0.4 Mg Tab.subl, 0.4 MG SL Q5MIN PRN for CHEST PAIN, TAB.SL 08/28/23 Metoprolol Succinate (Metoprolol Succinate) 50 Mg Tab.er.24h, 50 MG PO BID, TAB 07/17/23 Torsemide (Torsemide) 20 Mg Tablet, 20 MG PO BID, TAB 07/17/23 Discontinued Reported Medications Lactulose (Lactulose) 10 Gram/15 Ml Solution, 10 GM PO HS PRN for CONSTIPATION, ML 08/01/24 Budesonide/Formoterol Fumarate (Symbicort 80-4.5 Mcg Inhaler) 80 Mcg-4.5 Mcg/Actuation Inhr, 2 PUFF IH BID PRN for SHORTNESS OF BREATH, INH 12/27/23 Magnesium Oxide (Magnesium) 400 Mg Magnesium Capsule, 400 MG PO DAILYBKFST, CAP 08/01/23 Discontinued Scripts Prednisolone Sod Phosphate (Prednisolone Sod Phosphate) 15 Mg/5 Ml (5 Ml) Solution, 5 ML PO BID for 2 Days, #30 ML 0 Refills Prov:MAINE DURHAM MD 05/16/25 Tramadol Hcl (Tramadol HCl) 50 Mg Tablet, 50 MG PO Q6HPRN PRN for PAIN, #15 TAB 0 Refills Prov:NICOLETTE SWAIN MD 11/01/24 Time spent arranging discharge: 1-30 minutes PORSCHE BURR MD May 31, 2025 06:53
== END 2025-05-25 11:38 | disposition left against medical advice (07) ==
LOC: EDH 17:20 → INTOOBSV 17:21 → EDHIP 17:21
PROVIDERS: ADMIT Internal Medicine; ATTEND Internal Medicine
DX: I48.91 Unspecified atrial fibrillation (principal); I25.10 Atherosclerotic heart disease of native coronary artery without angina pectoris; I11.0 Hypertensive heart disease with heart failure; I50.42 Chronic combined systolic (congestive) and diastolic (congestive) heart failure; E78.00 Pure hypercholesterolemia, unspecified; E11.9 Type 2 diabetes mellitus without complications; Z79.899 Other long term (current) drug therapy; Z95.1 Presence of aortocoronary bypass graft; Z95.810 Presence of automatic (implantable) cardiac defibrillator; Z95.5 Presence of coronary angioplasty implant and graft; Z98.890 Other specified postprocedural states
CPT/HCPCS: 96374; 99285; 82550; 84484; 80048 ×2; 83880; 85025 ×2; 85610; 85730; 81003; 36415 ×2; 71045; 93005; 94640; 83735; 84100; G0378 ×13; J1938